=== PATIENT | female | born 1950 | race African-American/Black ===

== ENCOUNTER 2016-06-13 09:11 | Emergency (ER) | payer MEDICAID ==
[~2016-06-13] VITALS: Ht 170.2 cm; Wt 65.8 kg
[~2016-06-13 09:11] MED LIST: ACETAMINOPHEN-1 EAC1 ORAL; CITALOPRAM HBR10 M1 ORAL; HYDROCHLOROTH12.5 M2 ORAL; IBUPROFEN600 M1 PO; IBUPROFEN600 MG ORAL; IBUPROFEN600 MG PO; IBUPROFEN800 M1 PO; K-DUR20 MEQ ORAL; MICARDIS20 MG ORAL; NIFEDICAL XL30 MG ORAL; NKM; NORCO 5-325 TA1 EACH ORAL; NORCO 5-325 TA1 EACH PO; POTASSIUM99 M2 PO; ROBAXIN-750750 MG PO; TRAMADOL HCL50 MG ORAL; UNK CHOLESTEROL MED; VALIUM5 MG ORAL
[2016-06-13 11:00] VITALS: BP 148/70
[2016-06-13] MEDS ORDERED: ACETAMINOPHEN-1 EAC1 ORAL (12:12)
[2016-06-13] MEDS ORDERED: ROBAXIN-750750 MG PO (12:12)
[2016-06-13] MEDS ORDERED: Ketorolac 60mg Inj IM ONE (12:15)
--- NOTE | 2016-06-13 12:30 | Emergency Room Report ---
History of Present Illness General Chief Complaint: Lower Back Pain or Injury Source: Patient Present Illness HPI 65 YOM came for chronic left low back pain. States fell on left lower back 3 weeks ago but "that pain resolved." States "cant see my doctor til next month. " States doesnt have any medication at home. Pain worse with movement, walking. Denies assoc lower extremity weakness, urinary/fecal incontinence, fever/chills , dysuria, history of IVDU or malignancy. Allergies: Coded Allergies: No Known Allergies (Unverified , 10/23/15) Patient History Past Medical History: none Past Surgical History: none Pertinent Family History: none Social History: Denies: alcohol use, drug use, smoking Last Menstrual Period: na Now: No Immunizations: UTD Reviewed Nursing Documentation: PMH: Agreed, PSxH: Agreed Nursing Documentation-PMH Past Medical History: No History, Except For Hx Hypertension: Yes Hx Pacemaker: No Hx Asthma: No - Bronchitis Hx COPD: No Hx Cancer: Yes - Breast cancer Review of Systems All Other Systems: negative except mentioned in HPI Physical Exam Vital Signs Date Time Temp Pulse Resp B/P Pulse Ox O2 Delivery O2 Flow Rate FiO2 06/13/16 09:44 98.2 66 18 148/70 100 Room Air Sp02 EP Interpretation: reviewed, normal General Appearance: normal inspection, well appearing, no apparent distress, alert, GCS 15, non-toxic Head: normocephalic, atraumatic Eyes: bilateral eye EOMI, bilateral eye PERRL ENT: normal ENT inspection, hearing grossly normal, normal voice Neck: normal inspection, full range of motion, supple, no bony tend Respiratory: normal inspection, lungs clear, normal breath sounds, no respiratory distress, no retraction, no wheezing Cardiovascular #1: regular rate, rhythm, no edema Gastrointestinal: normal inspection, normal bowel sounds, non tender, soft, no guarding, no hernia Genitourinary: no CVA tenderness Musculoskeletal: normal inspection, back normal, normal range of motion, Dallas' s Sign negative, other - Mild left paravertebral ttp. 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 nml as tested, motor strength/tone normal, speech normal Psychiatric: normal inspection, judgement/insight normal, mood/affect normal Skin: normal inspection, normal color, no rash Medical Decision Making Diagnostic Impression: Primary Impression: Low back pain Qualified Codes: M54.5 - Low back pain; G89.29 - Other chronic pain ER Course A: low suspicion for cord compression given well appearance, paravertebral ttp, no focal neuro deficits, absence of midline ttp/masses and pain worse with movement with known exacerbating activity Multiple visits here for same complaint with similar story of "doctor out of town." Per CURES, multiple narcotic Rx given in the past I am uncomfortable providing additional Rx Narcotics at this time Rx T#3 with robaxin DC home with PMD followup Last Vital Signs Date Time Temp Pulse Resp B/P Pulse Ox O2 Delivery O2 Flow Rate FiO2 06/13/16 09:44 98.2 66 18 148/70 100 Room Air Status: improved Disposition: HOME, SELF-CARE Condition: Improved Scripts Methocarbamol* (ROBAXIN-750*) 750 Mg Tablet 750 MG PO TID, #30 TAB 0 Refills Prov: NEREIDA COELHO M.D. 06/13/16 Acetaminophen With Codeine (T#3) (TYLENOL #3 TAB*) Y Tab 1 TAB ORAL Q8H Y for For Pain, #30 TAB Prov: NEREIDA COELHO M.D. 06/13/16 Referrals: NON PHYSICIAN (PCP) Patient Instructions: Back Pain, Adult NEREIDA COELHO M.D. Jun 13, 2016 12:30
[2016-06-13 12:42] VITALS: BP 132/71
== END 2016-06-13 12:44 | disposition home or self-care (01) ==
LOC: EMR 10:40
DX: M54.5 Low back pain (principal); G89.29 Other chronic pain; I10 Essential (primary) hypertension; Z85.3 Personal history of malignant neoplasm of breast
CPT/HCPCS: 96372; 99284

== ENCOUNTER 2016-09-19 12:16 | Emergency (ER) | payer MEDICAID ==
[~2016-09-19] VITALS: Ht 167.6 cm; Wt 61.7 kg
[2016-09-19 12:31] VITALS: BP 134/74
[2016-09-19] MEDS ORDERED: Norco 10mg/325mg tab ORAL ONE (13:00)
[2016-09-19 13:04] VITALS: BP 134/74
--- NOTE | 2016-09-19 22:08 | Emergency Room Report ---
History of Present Illness General Chief Complaint: Pain Source: Patient Present Illness HPI The patient is a 65-year-old female with a history of chronic pain presenting for abdominal pain. The patient states that she had abdominal surgery years prior for an unknown reason and is now experiencing a 9/10 dull ache. Pain radiates to the left breast it is worse with touch. She has tried Motrin and Tylenol at home which has not helped. She denies other symptoms including nausea, vomiting, fever, chills, rash, constipation, diarrhea. She states that her primary doctor is out of town and she is unable to see him for pain medication Allergies: Coded Allergies: No Known Allergies (Unverified , 10/23/15) Patient History Past Medical History: see triage record Pertinent Family History: none Now: No Reviewed Nursing Documentation: PMH: Agreed, PSxH: Agreed Nursing Documentation-PMH Hx Hypertension: Yes Hx Pacemaker: No Hx Asthma: No - Bronchitis Hx COPD: No Hx Cancer: Yes - Breast cancer Review of Systems All Other Systems: negative except mentioned in HPI Physical Exam Vital Signs Date Time Temp Pulse Resp B/P Pulse Ox O2 Delivery O2 Flow Rate FiO2 09/19/16 12:22 98.2 56 17 134/74 97 Room Air Sp02 EP Interpretation: reviewed, normal General Appearance: no apparent distress, alert, GCS 15, non-toxic Head: normocephalic, atraumatic Eyes: bilateral eye PERRL, bilateral eye normal inspection ENT: hearing grossly normal, normal pharynx, no angioedema, normal voice Neck: full range of motion, supple/symm/no masses Respiratory: chest non-tender, lungs clear, normal breath sounds, speaking full sentences Gastrointestinal: normal bowel sounds, soft, no mass, non-distended, no guarding, no rebound, tenderness - diffuse, other - horizontal surigcal scar suprapubic. Well healed. No bleeding or DC. Neurologic: alert, oriented x3, responsive, motor strength/tone normal, sensory intact, normal gait, speech normal Psychiatric: judgement/insight normal, memory normal, mood/affect normal, no suicidal/homicidal ideation Skin: normal color, no rash, warm/dry, well hydrated Lymphatic: no adenopathy Medical Decision Making PA Attestation Dr. Guallpa is my supervising physician. Patient management was discussed with my supervising physician Diagnostic Impression: Primary Impression: Chronic pain Qualified Codes: G89.29 - Other chronic pain ER Course The patient is a 65-year-old female with a history of chronic pain presenting for abdominal pain Differential diagnoses considered include but not limited to gastritis, pancreatitis, appendicitis, chronic pain, narcotic dependency PE: NAD Abdomen is soft. Normal bowel sounds. Nondistended. There is diffuse tenderness to palpation. No guarding. There is a horizontal suprapubic surgical scar that is well-healed. No discharge. No skin changes. CURES shows that the patient has had multiple recent narcotic prescriptions from different physicians. The patient is given one [place] in the emergency department and will be discharged home. She is informed that she needs to see pain management and primary doctor for further care. ER precautions given Last Vital Signs Date Time Temp Pulse Resp B/P Pulse Ox O2 Delivery O2 Flow Rate FiO2 09/19/16 13:04 98.2 09/19/16 13:04 17 134/74 97 Room Air 09/19/16 12:22 56 Status: improved Disposition: HOME, SELF-CARE Condition: Improved Referrals: [facility],REFERR[facility] (PCP) Patient Instructions: Chronic Pain Additional Instructions: I discussed my findings with the patient. All questions and concerns have been answered. Treatment and medication compliance have been addressed. I advised the patient that they need to follow up with PMD in 3-5 days. Return to ED if symptoms worsen, new symptoms arise, or if needed for any reason. Patient verbalized understanding of discharge instructions. Please followup with pain management for further care MILAGROS DACOSTA Sep 19, 2016 22:08
== END 2016-09-19 13:04 | disposition home or self-care (01) ==
LOC: EMR 12:46
DX: G89.29 Other chronic pain (principal); Z85.3 Personal history of malignant neoplasm of breast; I10 Essential (primary) hypertension
CPT/HCPCS: 99282

== ENCOUNTER 2016-12-02 10:34 | Emergency (ER) | payer MEDICAID ==
[~2016-12-02] VITALS: Ht 170.2 cm; Wt 63.5 kg
[2016-12-02 10:50] VITALS: BP 148/74
--- NOTE | 2016-12-02 11:41 | Emergency Room Report ---
History of Present Illness General Chief Complaint: Edema Source: Patient Present Illness HPI 65YOF walk-in with bilateral "feet swelling" for 1 week. Denies chest pain, SOB, history of CHF On "many medications" for HTN but stopped taking HCTZ because it "made me pee all night." Denies history of pulm edema Denies fever/chills Denies trauma to feet, falls Denies rash Allergies: Coded Allergies: HYDROMORPHONE (Verified Allergy, Unknown, 09/20/16) Patient History Past Medical History: HTN Past Surgical History: none Pertinent Family History: none Social History: Denies: smoking, alcohol use, drug use Now: No Immunizations: UTD Reviewed Nursing Documentation: PMH: Agreed, PSxH: Agreed Nursing Documentation-PMH Hx Hypertension: Yes Hx Pacemaker: No Hx Asthma: No - Bronchitis Hx COPD: No Hx Cancer: Yes - Breast cancer Review of Systems All Other Systems: negative except mentioned in HPI Physical Exam Vital Signs Date Time Temp Pulse Resp B/P (MAP) Pulse Ox O2 Delivery O2 Flow Rate FiO2 12/02/16 10:40 98.4 74 17 132/76 97 Room Air Sp02 EP Interpretation: reviewed, normal General Appearance: normal inspection, well appearing, no apparent distress, alert, GCS 15, non-toxic Head: normocephalic, atraumatic Eyes: bilateral eye PERRL, bilateral eye EOMI ENT: normal ENT inspection, hearing grossly normal, normal voice Neck: normal inspection, full range of motion, supple, no bony tend Respiratory: normal inspection, lungs clear, normal breath sounds, no respiratory distress, no retraction, no wheezing Cardiovascular #1: regular rate, rhythm, no edema Gastrointestinal: normal inspection, normal bowel sounds, non tender, soft, no guarding, no hernia Genitourinary: no CVA tenderness Musculoskeletal: normal inspection, back normal, normal range of motion, Dallas' s Sign negative, other - Bilateral feet non-pitting edema. No rash or sign of infection. 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 Troponin 0 VSS. BP controlled. Mild HypoK, was repleted in ED Low albumin UTI on UA. Rx macrobid Advised PMD followup to monitor hypoK as possible side effect of diuretic for HTN Advised KARMA wrap, elevation of feet at night Has PMD appt coming up soon EKG Diagnostic Results Rate: normal Rhythm: NSR ST Segments: no acute changes ASA given to the pt in ED: No Rhythm Strip Diag. Results EP Interpretation: yes - 71 Rate: 71 Rhythm: NSR, other - PACs, incomplete RBBB Last Vital Signs Date Time Temp Pulse Resp B/P (MAP) Pulse Ox O2 Delivery O2 Flow Rate FiO2 12/02/16 10:40 98.4 74 17 132/76 97 Room Air Status: improved Disposition: HOME, SELF-CARE NEREIDA COELHO M.D. Dec 02, 2016 11:41
--- NOTE | 2016-12-02 11:57 | Diagnostic Imaging Report ---
Indication: Dyspnea Comparison: 08/05/16 A single view chest radiograph was obtained. Findings: Surgical clips noted in the left axilla and projected over left chest. Heart size is borderline enlarged. Bones are osteopenic. Lungs are clear. Impression: No acute findings
[2016-12-02 12:37] LABS: APPEARANCE,URINE CLEAR; KETONES,URINE NEGATIVE (NEGATIVE); LEUKOCYTE ESTERASE ,URINE 2+ (NEGATIVE); NITRITE,URINE NEGATIVE (NEGATIVE); PH,URINE 8 (4.5-8.0); PROTEIN,URINE NEGATIVE (NEGATIVE); UROBILINOGEN,URINE NORMAL MG/DL (0.0-1.0)
[2016-12-02 12:44] LABS: BASOPHILS % (AUTO) 0.7 % (0.0-2.0); EOSINOPHILS % (AUTO) 1.6 % (0.0-3.0); MEAN CORPUSCULAR HEMOGLOBIN 28.8 PG (27.0-31.0); MEAN CORPUSCULAR HGB CONC 31.1 G/DL (32.0-36.0); MEAN CORPUSCULAR VOLUME 93 FL (80-99); MONOCYTES % (AUTO) 8.6 % (1.0-10.0); NEUTROPHILS % (AUTO) 70.1 % (45.0-75.0); PLATELET COUNT 232 K/UL (150-450); RED BLOOD COUNT 4.17 M/UL (4.20-5.40); RED CELL DISTRIBUTION WIDTH 15.6 % (11.6-14.8); WHITE BLOOD COUNT 6.1 K/UL (4.8-10.8)
[2016-12-02 12:49] LABS: BACTERIA,URINE FEW /HPF; SQUAMOUS EPITHELIAL CELL,UR FEW /LPF (NONE/OCC)
[2016-12-02 13:04] LABS: ALANINE AMINOTRANSFERASE 13 U/L (3-33); ALBUMIN/GLOBULIN RATIO 0.8 (1.0-2.7); ANION GAP 13 (5-15); ASPARTATE AMINO TRANSFERASE 37 U/L (5-40); CARBON DIOXIDE 27 mEQ/L (20-30); CHLORIDE 101 mEQ/L (98-107); CREATININE 0.8 mg/dL (0.5-0.9); GLOMERULAR FILTRATION RATE > 60 mL/min (>60); HEMOLYSIS 14; POTASSIUM 2.9 mEQ/L (3.4-4.9); SODIUM 141 mEQ/L (135-145); TOTAL PROTEIN 7.4 g/dL (6.6-8.7); TROPONIN I < 0.30 ng/mL (<=0.30)
[2016-12-02 13:14] LABS: CKMB 2.4 ng/mL (< 3.8)
[2016-12-02] MEDS ORDERED: NITROFURANTOIN100 M2 ORAL (13:36)
[2016-12-02] MEDS ORDERED: ACETAMINOPHEN-1 EAC1 ORAL (13:40)
[2016-12-02] MEDS ORDERED: KCl 10% 40mEq/30ml liquid ORAL ONE (13:45)
[2016-12-02 14:35] VITALS: BP 134/58
--- NOTE | 2016-12-04 19:45 | Cardiology Report ---
APPROVED REPORT EKG Measurement Heart [id number] Sinus rhythm with premature atrial complexes Low voltage QRS Incomplete right bundle branch block Left anterior fascicular block Cannot rule out Anterior infarct, age undetermined Abnormal ECG
== END 2016-12-02 14:35 | disposition home or self-care (01) ==
LOC: EMR 11:16
DX: R60.0 Localized edema (principal); E87.6 Hypokalemia; N39.0 Urinary tract infection, site not specified; Z85.3 Personal history of malignant neoplasm of breast; I10 Essential (primary) hypertension
CPT/HCPCS: 36415; 71010; 80053; 81003; 82550; 82553; 83880; 84484; 85025; 93005; 99283

== ENCOUNTER 2016-12-17 16:44 | Inpatient (IN) | payer MEDICARE, MEDICAID ==
[~2016-12-17] VITALS: Ht 170.2 cm; Wt 63.5 kg
[~2016-12-17 16:44] MED LIST changes: +NITROFURANTOIN100 M2 ORAL
[2016-12-17 16:57] VITALS: BP 173/107
[2016-12-17] MEDS ORDERED: Metoclopramide 10mg/2ml Inj IVP ONE (17:15)
--- NOTE | 2016-12-17 17:20 | Emergency Room Report ---
History of Present Illness General Chief Complaint: Vomiting Source: Patient Present Illness HPI 66YOF walk-in with 24 hours of greenish vomit, diarrhea and generalized abd pain after eating burrito at home Son also sick, had burrito Cant tolerate any PO intake Denies urinary complaints, fever/chills, past surgery No new meds or ABx no travel history Allergies: Coded Allergies: HYDROMORPHONE (Verified Allergy, Unknown, 09/20/16) Patient History Past Medical History: HTN Past Surgical History: none Pertinent Family History: none Social History: Denies: smoking, alcohol use, drug use Last Menstrual Period: none Now: No Immunizations: UTD Reviewed Nursing Documentation: PMH: Agreed, PSxH: Agreed Nursing Documentation-PMH Hx Hypertension: Yes Hx Pacemaker: No Hx Asthma: No - Bronchitis Hx COPD: No Hx Cancer: Yes - Breast cancer Review of Systems All Other Systems: negative except mentioned in HPI Physical Exam Vital Signs Date Time Temp Pulse Resp B/P (MAP) Pulse Ox O2 Delivery O2 Flow Rate FiO2 12/17/16 16:51 97.7 84 23 173/107 100 Room Air Sp02 EP Interpretation: reviewed, normal General Appearance: normal inspection, well appearing, no apparent distress, alert, GCS 15, non-toxic, other - Actively with green vomitous Head: normocephalic, atraumatic Eyes: bilateral eye PERRL, bilateral eye EOMI ENT: normal ENT inspection, hearing grossly normal, normal voice Neck: normal inspection, full range of motion, supple, no bony tend Respiratory: normal inspection, lungs clear, normal breath sounds, no respiratory distress, no retraction, no wheezing Cardiovascular #1: regular rate, rhythm, no edema Gastrointestinal: normal inspection, normal bowel sounds, non tender, soft, no guarding, no hernia Genitourinary: no CVA tenderness Musculoskeletal: normal inspection, back normal, normal range of motion, Dallas' s Sign negative Neurologic: normal inspection, alert, responsive, speech normal Psychiatric: normal inspection, judgement/insight normal, mood/affect normal Skin: normal inspection, normal color, no rash Medical Decision Making Medicare Attestation I Nereida Coelho MD hereby attest that the medical record entry for date of service, 12/17/16 accurately reflects signatures/notations that I made in my capacity as MD when I treated/diagnosed the above listed Medicare beneficiary. I attest that this information is true, accurate and complete to the best of my knowledge. I understand that any falsification, omission, or concealment of material fact may subject me to administrative, civil, or criminal liability. This patient warrants hospital admission for extreme of age and has a condition that cannot be treated as outpatient. Diagnostic Impression: Primary Impression: Vomiting Qualified Codes: R11.14 - Bilious vomiting Additional Impressions: Diarrhea Qualified Codes: R19.7 - Diarrhea, unspecified Gastroenteritis Hypokalemia ER Course Troponin 0 Labs: No leuks. H&h stable HypoK - has had before. On diuretic for BP control - Mild JAMAAL - ECG: previously seen incomplete RBBB and LAFB - Repleted PO and IV in ED Elevated lipase - Likely reactionary from vomiting - CT negative for acute pancreatitis, other pathology - Only colitis Tele admit, Dr Galdamez at 726pm EKG Diagnostic Results Rate: normal Rhythm: NSR, other - LAFB, RBBB ST Segments: no acute changes ASA given to the pt in ED: No Rhythm Strip Diag. Results EP Interpretation: yes Rate: 82 Rhythm: NSR, no PVC's, no ectopy Last Vital Signs Date Time Temp Pulse Resp B/P (MAP) Pulse Ox O2 Delivery O2 Flow Rate FiO2 12/17/16 16:51 97.7 84 23 173/107 100 Room Air Status: improved Disposition: ADMITTED INPATIENT Condition: Serious NEREIDA COELHO M.D. Dec 17, 2016 17:20
[2016-12-17 17:52] LABS: BASOPHILS % (AUTO) 1.3 % (0.0-2.0); EOSINOPHILS % (AUTO) 0.2 % (0.0-3.0); LYMPHOCYTES % (AUTO) 17.3 % (20.0-45.0); MEAN CORPUSCULAR HEMOGLOBIN 30.9 PG (27.0-31.0); MEAN CORPUSCULAR HGB CONC 32.6 G/DL (32.0-36.0); MEAN CORPUSCULAR VOLUME 95 FL (80-99); MEAN PLATELET VOLUME 6.5 FL (6.5-10.1); MONOCYTES % (AUTO) 5.6 % (1.0-10.0); NEUTROPHILS % (AUTO) 75.6 % (45.0-75.0); PLATELET COUNT 236 K/UL (150-450); RED BLOOD COUNT 4.57 M/UL (4.20-5.40); RED CELL DISTRIBUTION WIDTH 16.4 % (11.6-14.8); WHITE BLOOD COUNT 9.3 K/UL (4.8-10.8)
[2016-12-17] MEDS ORDERED: Famotidine 20 MG/ 2ML VIAL IVP ONE (18:00)
[2016-12-17] MEDS ORDERED: Morphine Sulfate 4mg/ml Inj IVP ONE (18:00)
[2016-12-17 18:07] LABS: ALANINE AMINOTRANSFERASE 17 U/L (3-33); ALBUMIN/GLOBULIN RATIO 0.9 (1.0-2.7); ASPARTATE AMINO TRANSFERASE 52 U/L (5-40); CALCIUM 9.5 mg/dL (8.6-10.2); CARBON DIOXIDE 24 mEQ/L (20-30); CHLORIDE 103 mEQ/L (98-107); GLOMERULAR FILTRATION RATE > 60 mL/min (>60); HEMOLYSIS 12; LIPASE 72 U/L (< 60); SODIUM 145 mEQ/L (135-145)
[2016-12-17 18:12] LABS: ANION GAP 18 (5-15)
[2016-12-17 18:16] LABS: POTASSIUM 2.1 mEQ/L (3.4-4.9)
[2016-12-17] MEDS ORDERED: LR 1000ml 1,000 ML IV STA (18:28)
[2016-12-17 19:53] VITALS: BP 159/69
[2016-12-17 20:04] LABS: APPEARANCE,URINE CLEAR; KETONES,URINE NEGATIVE (NEGATIVE); LEUKOCYTE ESTERASE ,URINE 1+ (NEGATIVE); NITRITE,URINE NEGATIVE (NEGATIVE); PH,URINE 8 (4.5-8.0); PROTEIN,URINE NEGATIVE (NEGATIVE); UROBILINOGEN,URINE NORMAL MG/DL (0.0-1.0)
[2016-12-17 20:09] LABS: BACTERIA,URINE OCCASIONAL /HPF; RBC,URINE 0-2 /HPF (0 - 2); SQUAMOUS EPITHELIAL CELL,UR OCCASIONAL /LPF (NONE/OCC); WBC,URINE 0-2 /HPF (0 - 2)
[2016-12-17] MEDS ORDERED: Methocarbamol 750mg tab ORAL PRN (20:15)
[2016-12-17 21:23] VITALS: BP 143/57
[2016-12-17] MEDS ORDERED: metroNIDAZOLE 500mg 100 ML IVPB PRN (22:00)
[2016-12-17] MEDS: D5 1/2NS w/KCl 20mEq 1,000 ML IV SCH (22:43)
[2016-12-17] MEDS: traMADol 50mg tab ORAL PRN (23:00)
[2016-12-17] MEDS: metroNIDAZOLE 500mg tab ORAL SCH (23:00)
[2016-12-17] MEDS: Heparin 5000 units/ml inj SUBQ SCH (23:03)
[2016-12-18 00:14] VITALS: BP 137/68
[2016-12-18 04:38] VITALS: BP 131/69
[2016-12-18] MEDS: metroNIDAZOLE 500mg tab ORAL SCH ×3 (05:30→20:36)
[2016-12-18 08:00] VITALS: BP 139/80
[2016-12-18] MEDS: Citalopram Hydrobromide 10 MG TAB ORAL SCH (09:04)
[2016-12-18] MEDS: traMADol 50mg tab ORAL PRN (09:04)
[2016-12-18] MEDS: D5 1/2NS w/KCl 20mEq 1,000 ML IV SCH ×2 (09:05→19:26)
--- NOTE | 2016-12-18 09:08 | Diagnostic Imaging Report ---
Clinical Indication: Abdominal pain, vomiting, 24 hours of greenish vomiting, diarrhea, generalized abdominal pain, unable to tolerate p.o. intake Technique: No oral contrast utilized, per emergency room physician request IV administration nonionic contrast. Venous phase spiral acquisition obtained through the abdomen and pelvis. Multiplanar reconstructions were generated. Total dose length product 909 mGycm. CTDIvol(s) 16 mGy. Dose reduction achieved using automated exposure control Comparison: 04/11/2015 Findings: Interim development of diffuse wall thickening of the colon. This is particularly striking in the ascending and sigmoid colon, but appears to be diffuse. The appendix is normal. Some small bowel loops also demonstrate very mild wall thickening and mural enhancement. The distal esophagus demonstrates a hiatal hernia. The remainder the stomach and duodenum are unremarkable. No free or loculated intraperitoneal air or fluid. There is evidence of interim abdominal surgery, with surgical clips or mesh anchors in the anterior right lower quadrant and evidence of subcutaneous surgical scarring, not evident previously. There are scattered colonic diverticula. No small bowel distention. The liver equivocally demonstrates mild surface nodularity. In segment 8 of the liver, there is a low-attenuation lesion with an enhancing rim which measures approximately 2.8 x 2.4 cm in diameter. This was not evident previously. A nodule is seen anterior to the left hepatic lobe which measures 11 mm in diameter. This was also evident previously, appears unchanged currently. The gallbladder is nondistended. Bile ducts are unremarkable. The pancreas is unremarkable. The spleen demonstrates 2 accessory splenules, is otherwise unremarkable. The adrenals are unremarkable. The kidneys demonstrate bilateral subcentimeter low-attenuation lesions which are too small to characterize, most likely benign simple cortical cysts. The uterus demonstrates multiple masses, consistent with fibroids. Again demonstrated is a 3.2 cm right ovarian cyst. The included lung bases again demonstrate minimal scarring in the left costophrenic sulcus which appears unchanged. The heart is borderline enlarged. There a fluid collection in the anterolateral lower chest wall deep to the inframammary fold which measures approximately 7 x 2.6 x 3.9 cm. This was not evident previously. There appears to be some scarring superficial to this as well as one or more surgical clips. The bones are unremarkable except for mild degenerative spondylosis changes and degenerative changes of both hips. Impression: Diffuse colonic wall thickening. Findings consistent with colitis. Nonspecific as regards etiology. Less striking small bowel wall thickening and mural enhancement may indicate a component of enteritis as well 2.8 x 2.4 cm low-attenuation lesion within the right lobe of the liver. This could represent a an abscess or neoplasm, appearance more suggestive of the former Equivocal mild hepatic surface nodularity. Possibility of cirrhosis should be considered. Correlate with clinical and laboratory findings Evidence of interim left breast surgery. 7 x 2.6 x 3.9 cm fluid collection deep to the left inframammary fold could represent a postoperative seroma. However, abscess cannot be ruled out Evidence of interim abdominal surgery, possibly abdominal wall hernia repair or abdominoplasty 11 mm nodule anterior left hepatic lobe, unchanged from previous presumed benign 3.2 cm right ovarian cyst, unchanged from previously and previously reported stable from earlier studies Single findings as noted, including hiatal hernia, probable renal cysts, multiple uterine fibroids, left lung base scarring, borderline cardiomegaly, degenerative spondylosis and degenerative hip changes This agrees with the preliminary interpretation provided overnight by [facility] teleradiology service. The CT scanner at -- [facility] is accredited by the [employer] and the scans are performed using protocols designed to limit radiation exposure to as low as reasonably achievable to attain images of sufficient resolution adequate for diagnostic evaluation.
[2016-12-18] MEDS: Heparin 5000 units/ml inj SUBQ SCH ×2 (09:13→20:39)
[2016-12-18 10:14] LABS: BASOPHILS % (AUTO) 1.1 % (0.0-2.0); EOSINOPHILS % (AUTO) 0.8 % (0.0-3.0); LYMPHOCYTES % (AUTO) 17.9 % (20.0-45.0); MEAN CORPUSCULAR HEMOGLOBIN 30.9 PG (27.0-31.0); MEAN CORPUSCULAR HGB CONC 31.8 G/DL (32.0-36.0); MEAN CORPUSCULAR VOLUME 97 FL (80-99); MEAN PLATELET VOLUME 6.9 FL (6.5-10.1); MONOCYTES % (AUTO) 9.5 % (1.0-10.0); NEUTROPHILS % (AUTO) 70.6 % (45.0-75.0); PLATELET COUNT 198 K/UL (150-450); RED BLOOD COUNT 3.67 M/UL (4.20-5.40); RED CELL DISTRIBUTION WIDTH 16.2 % (11.6-14.8); WHITE BLOOD COUNT 7.1 K/UL (4.8-10.8)
[2016-12-18 10:52] LABS: ALANINE AMINOTRANSFERASE 16 U/L (3-33); ALBUMIN/GLOBULIN RATIO 1.1 (1.0-2.7); ANION GAP 14 (5-15); ASPARTATE AMINO TRANSFERASE 55 U/L (5-40); CARBON DIOXIDE 21 mEQ/L (20-30); CHLORIDE 104 mEQ/L (98-107); CREATININE 0.8 mg/dL (0.5-0.9); GLOMERULAR FILTRATION RATE > 60 mL/min (>60); HEMOLYSIS 9; POTASSIUM 3.3 mEQ/L (3.4-4.9); SODIUM 139 mEQ/L (135-145)
[2016-12-18 12:00] VITALS: BP 138/62
[2016-12-18] MEDS: Norco 10mg/325mg tab ORAL PRN ×3 (12:09→19:27)
--- NOTE | 2016-12-18 18:35 | Cardiology Report ---
APPROVED REPORT EKG Measurement Heart [id number] Sinus rhythm with frequent premature ventricular complexes Left axis deviation Incomplete right bundle branch block Possible Anterior infarct, age undetermined Abnormal ECG
[2016-12-18 20:15] VITALS: BP 152/69
--- NOTE | 2016-12-18 20:30 | History and Physical Report ---
DATE OF ADMISSION: 12/17/2016 CHIEF COMPLAINT: Intractable nausea and vomiting, abdominal pain, and diarrhea. HISTORY OF PRESENT ILLNESS: The patient is a 66-year-old female, who has a prior history of hypertension, breast cancer, and chronic lower back pain. She presented with complaints of intractable nausea and vomiting and diarrhea. According to the patient, she was well until worm raiser of the day of admission when she woke with severe nausea and vomiting as well as diarrhea. She states her son had similar symptoms, but they resolved spontaneously after a few hours. She presented to the emergency room where she was noted to be severely hypokalemic. She had a CAT scan that showed colitis. In light of her intractable nausea and vomiting, inability to tolerate p.o., as well as hypokalemia, she is now admitted for further evaluation and care. PAST MEDICAL HISTORY: Significant for history of hypertension. She has a history of breast cancer, breast abscess, status post mastectomy. CURRENT MEDICATIONS: Reconciled and reviewed. ALLERGIES: Include Dilaudid. SOCIAL HISTORY: Negative for tobacco, ethanol, or drugs. FAMILY HISTORY: Significant for history of cirrhosis, hypertension, and diabetes. REVIEW OF SYSTEMS: General: No fevers or chills. HEENT: No headaches or visual changes. Cardiopulmonary: No chest pain or shortness of breath. Gastrointestinal: Positive nausea and vomiting. Positive diarrhea. Genitourinary: No urgency or frequency. Musculoskeletal: No joint pains or swelling. Positive history of chronic low back pain. Neurologic: No history of seizures. PHYSICAL EXAMINATION: VITAL SIGNS: Temperature 98 degrees, blood pressure 137/68, pulse 64, and respirations 20. GENERAL: The patient is a well developed female, in no apparent distress. She is awake, alert, and oriented x4. NECK: Supple. There is no jugular venous distention. HEART: Regular rate and rhythm. LUNGS: Clear. ABDOMEN: Soft. Minimally tender throughout. There is no rebound or guarding. EXTREMITIES: Without clubbing, cyanosis, or edema. LABORATORY AND DIAGNOSTIC DATA: Labs, white count was 9, hemoglobin 14. Sodium 145, potassium 2, creatinine was 1. Magnesium was 1.6. Urine was clear. CT scan of the abdomen per report from the ER showed colitis. ASSESSMENT: This is a pleasant female with complaints of intractable nausea and vomiting and diarrhea, suspect secondary to food poisoning or gastroenteritis. She has severe hypokalemia due to the above. In addition, she does take need a diuretic. She has chronic lower back pain, history of breast cancer, and breast abscess. PLAN: Aggressive fluid resuscitation. Antiemetic therapy. Follow up cultures. Check stool for C. difficile. Replace electrolytes as needed. Discontinue diuretic. Cardiology and GI consultation. Johnie Galdamez M.D. DR: COOKIE JOB#: [id number] CC:
[2016-12-19 00:03] VITALS: BP 129/64
[2016-12-19] MEDS: Norco 10mg/325mg tab ORAL PRN ×5 (02:14→20:24)
[2016-12-19] MEDS: D5 1/2NS w/KCl 20mEq 1,000 ML IV SCH ×3 (03:46→20:27)
[2016-12-19 04:14] VITALS: BP 135/66
[2016-12-19] MEDS: metroNIDAZOLE 500mg tab ORAL SCH ×3 (05:02→21:21)
[2016-12-19 08:37] VITALS: BP 171/74
--- NOTE | 2016-12-19 08:44 | General Progress Note ---
Assessment/Plan Problem List: (1) Diarrhea ICD Codes: R19.7 - Diarrhea, unspecified SNOMED: 51005536 Qualifiers: Qualified Codes: R19.7 - Diarrhea, unspecified (2) Vomiting ICD Codes: R11.10 - Vomiting, unspecified SNOMED: 586834790 Qualifiers: Qualified Codes: R11.14 - Bilious vomiting (3) Hypokalemia ICD Codes: E87.6 - Hypokalemia SNOMED: 63356265 (4) Gastroenteritis ICD Codes: K52.9 - Noninfective gastroenteritis and colitis, unspecified SNOMED: 05400647 (5) Chronic pain ICD Codes: G89.29 - Other chronic pain SNOMED: 11020498 Assessment/Plan cont ivf check stool cdiff and cultures abx follow up labs check tfts- +bradycardia pain rx Subjective ROS Limited/Unobtainable: No Constitutional: Reports: malaise, weakness HEENT: Reports: no symptoms Cardiovascular: Reports: no symptoms Respiratory: Reports: no symptoms Gastrointestinal/Abdominal: Reports: abdominal pain, diarrhea Genitourinary: Reports: no symptoms Neurologic/Psychiatric: Reports: no symptoms Endocrine: Reports: no symptoms Hematologic/Lymphatic: Reports: no symptoms Allergies: Coded Allergies: HYDROMORPHONE (Verified Allergy, Unknown, 09/20/16) All Systems: reviewed and negative except above Subjective no vomiting. still with nausea. still having diarrhea. +bradycardia Objective Last 24 Hour Vital Signs Date Time Temp Pulse Resp B/P (MAP) Pulse Ox O2 Delivery O2 Flow Rate FiO2 12/19/16 08:37 97.9 54 18 171/74 100 Room Air 12/19/16 04:14 97.7 47 20 135/66 99 Room Air 12/19/16 04:00 62 12/19/16 03:17 97.9 12/19/16 00:03 97.9 56 20 129/64 99 Room Air 12/19/16 00:00 54 12/18/16 20:15 97.7 55 20 152/69 100 Room Air 55 55 12/18/16 20:00 72 12/18/16 16:00 98.1 55 18 100 Room Air 12/18/16 16:00 55 12/18/16 12:00 97.5 57 20 138/62 100 Room Air 12/18/16 12:00 49 12/18/16 09:05 60 131/69 Laboratory Tests 12/18/16 09:15: White Blood Count 7.1, Red Blood Count 3.67L, Hemoglobin 11.3L, Hematocrit 35.7L , Mean Corpuscular Volume 97, Mean Corpuscular Hemoglobin 30.9, Mean Corpuscular Hemoglobin Concent 31.8L, Red Cell Distribution Width 16.2H, Platelet Count 198, Mean Platelet Volume 6.9, Neutrophils (%) (Auto) 70.6, Lymphocytes (%) (Auto) 17.9L, Monocytes (%) (Auto) 9.5, Eosinophils (%) (Auto) 0.8, Basophils (%) (Auto) 1.1, Sodium Level 139, Potassium Level 3.3#L, Chloride Level 104, Carbon Dioxide Level 21, Anion Gap 14, Blood Urea Nitrogen 7 , Creatinine 0.8, Estimat Glomerular Filtration Rate > 60, Glucose Level 324#H, Calcium Level 8.0L, Total Bilirubin 0.9, Aspartate Amino Transf (AST/SGOT) 55H, Alanine Aminotransferase (ALT/SGPT) 16, Alkaline Phosphatase 68, Total Protein 6.0L, Albumin 3.2L, Globulin 2.8, Albumin/Globulin Ratio 1.1 12/19/16 06:50: Sodium Level [Pending], Potassium Level [Pending], Chloride Level [Pending], Carbon Dioxide Level [Pending], Blood Urea Nitrogen [Pending], Creatinine [ Pending], Estimat Glomerular Filtration Rate [Pending], Glucose Level [Pending] , Calcium Level [Pending], Total Bilirubin [Pending], Aspartate Amino Transf ( AST/SGOT) [Pending], Alanine Aminotransferase (ALT/SGPT) [Pending], Alkaline Phosphatase [Pending], Total Protein [Pending], Albumin [Pending], Globulin [ Pending], Hemoglobin A1c 4.7 Height (Feet): 5 Height (Inches): 7.00 Weight (Pounds): 140 General Appearance: WD/WN Neck: supple Cardiovascular: regular rhythm Respiratory/Chest: chest wall non-tender, lungs clear, normal breath sounds, no respiratory distress Abdomen: normal bowel sounds, non tender, soft Edema: no edema noted Arm (L), no edema noted Arm (R), no edema noted Leg (L), no edema noted Leg (R), no edema noted Pedal (L), no edema noted Pedal (R), no edema noted Generalized SERA BERRY Dec 19, 2016 08:44
[2016-12-19 08:46] LABS: ALANINE AMINOTRANSFERASE 15 U/L (3-33); ANION GAP 14 (5-15); ASPARTATE AMINO TRANSFERASE 37 U/L (5-40); CALCIUM 8.4 mg/dL (8.6-10.2); CARBON DIOXIDE 21 mEQ/L (20-30); CHLORIDE 107 mEQ/L (98-107); CREATININE 0.8 mg/dL (0.5-0.9); GLOMERULAR FILTRATION RATE > 60 mL/min (>60); HEMOLYSIS 1; POTASSIUM 2.8 mEQ/L (3.4-4.9); SODIUM 142 mEQ/L (135-145); TOTAL PROTEIN 6.3 g/dL (6.6-8.7)
[2016-12-19] MEDS: Citalopram Hydrobromide 10 MG TAB ORAL SCH (08:46)
[2016-12-19] MEDS: Heparin 5000 units/ml inj SUBQ SCH ×2 (08:51→20:26)
[2016-12-19] MEDS: Cholestyramine 4gm Pkt ORAL PRN (12:31)
[2016-12-19 12:34] VITALS: BP 161/79
[2016-12-19 16:44] VITALS: BP 152/78
[2016-12-19 20:00] VITALS: BP_SYST 152; BP_SYST 163; BP_DIAS 78
[2016-12-20] VITALS: BP 149/79
[2016-12-20] MEDS: Norco 10mg/325mg tab ORAL PRN ×2 (00:40→06:53)
[2016-12-20] MEDS: D5 1/2NS w/KCl 20mEq 1,000 ML IV SCH ×2 (01:38→19:27)
[2016-12-20 04:00] VITALS: BP 145/73
[2016-12-20] MEDS: metroNIDAZOLE 500mg tab ORAL SCH ×3 (06:49→21:06)
[2016-12-20 08:25] LABS: ALANINE AMINOTRANSFERASE 22 U/L (3-33); ALBUMIN/GLOBULIN RATIO 0.9 (1.0-2.7); ANION GAP 15 (5-15); ASPARTATE AMINO TRANSFERASE 52 U/L (5-40); CALCIUM 8.7 mg/dL (8.6-10.2); CARBON DIOXIDE 19 mEQ/L (20-30); CHLORIDE 106 mEQ/L (98-107); CREATININE 0.9 mg/dL (0.5-0.9); GLOMERULAR FILTRATION RATE > 60 mL/min (>60); HEMOLYSIS 2; SODIUM 140 mEQ/L (135-145); TOTAL PROTEIN 6.9 g/dL (6.6-8.7)
--- NOTE | 2016-12-20 08:44 | General Progress Note ---
Assessment/Plan Problem List: (1) Diarrhea ICD Codes: R19.7 - Diarrhea, unspecified SNOMED: 59699027 Qualifiers: Qualified Codes: R19.7 - Diarrhea, unspecified (2) Vomiting ICD Codes: R11.10 - Vomiting, unspecified SNOMED: 321699675 Qualifiers: Qualified Codes: R11.14 - Bilious vomiting (3) Hypokalemia ICD Codes: E87.6 - Hypokalemia SNOMED: 08992644 (4) Gastroenteritis ICD Codes: K52.9 - Noninfective gastroenteritis and colitis, unspecified SNOMED: 68498160 (5) Chronic pain ICD Codes: G89.29 - Other chronic pain SNOMED: 80578980 Status: stable, not improved Assessment/Plan cont ivf check stool cdiff and cultures- asked staff to please collect abx follow up labs and replace, k start thryoid replacement pain rx not ready for dc. still with vomiting and diarrhea Subjective ROS Limited/Unobtainable: No Constitutional: Reports: malaise, weakness HEENT: Reports: no symptoms Cardiovascular: Reports: no symptoms Gastrointestinal/Abdominal: Reports: abdominal pain, diarrhea, nausea, vomiting Genitourinary: Reports: no symptoms Neurologic/Psychiatric: Reports: no symptoms Endocrine: Reports: no symptoms Hematologic/Lymphatic: Reports: no symptoms Allergies: Coded Allergies: HYDROMORPHONE (Verified Allergy, Unknown, 09/20/16) All Systems: reviewed and negative except above Subjective still with nausea and diarrhea. hypokalemic. bradycardic on monitor. still no cdiff or stool cultures collected yet. Objective Last 24 Hour Vital Signs Date Time Temp Pulse Resp B/P (MAP) Pulse Ox O2 Delivery O2 Flow Rate FiO2 12/20/16 04:00 97.0 54 20 145/73 98 Room Air 12/20/16 04:00 50 12/20/16 00:00 57 12/20/16 00:00 98.1 58 20 149/79 98 Room Air 12/19/16 20:00 56 12/19/16 20:00 97.7 62 18 163/78 99 Room Air 12/19/16 16:44 98.1 51 18 152/78 100 Room Air 12/19/16 16:00 65 12/19/16 12:34 98.1 49 18 161/79 100 Room Air 12/19/16 12:00 42 12/19/16 08:45 54 171/74 Laboratory Tests 12/20/16 08:00: Sodium Level 140, Potassium Level 3.0L, Chloride Level 106, Carbon Dioxide Level 19L, Anion Gap 15, Blood Urea Nitrogen 5L, Creatinine 0.9, Estimat Glomerular Filtration Rate > 60, Glucose Level 142H, Calcium Level 8.7, Total Bilirubin 0.6, Aspartate Amino Transf (AST/SGOT) 52H, Alanine Aminotransferase ( ALT/SGPT) 22, Alkaline Phosphatase 76, Total Protein 6.9, Albumin 3.4L, Globulin 3.5, Albumin/Globulin Ratio 0.9L Height (Feet): 5 Height (Inches): 7.00 Weight (Pounds): 140 SERA BERRY Dec 20, 2016 08:44
[2016-12-20 08:54] VITALS: BP 137/76
[2016-12-20] MEDS: Citalopram Hydrobromide 10 MG TAB ORAL SCH (08:56)
[2016-12-20] MEDS: Heparin 5000 units/ml inj SUBQ SCH ×2 (08:58→21:08)
[2016-12-20 12:09] VITALS: BP 144/68
[2016-12-20] MEDS: Morphine Sulfate 2mg/ml Inj IVP PRN ×3 (12:29→22:21)
[2016-12-20 16:12] VITALS: BP 153/79
[2016-12-20 20:00] VITALS: BP 160/71
[2016-12-20] MEDS: Cholestyramine 4gm Pkt ORAL PRN (20:13)
[2016-12-21] VITALS: BP 169/76
[2016-12-21] MEDS: Morphine Sulfate 2mg/ml Inj IVP PRN ×3 (03:40→11:54)
[2016-12-21 04:00] VITALS: BP 156/80
--- NOTE | 2016-12-21 06:00 | Consultation ---
DATE OF CONSULTATION: 12/17/2016 CARDIOLOGY CONSULTATION REQUESTING PHYSICIAN: Johnie Galdamez M.D. REASON FOR CONSULTATION: Cardiac arrhythmias. History Of Present Illness: This is a 66-year-old female presented to the emergency room with abdominal pain, vomiting, and diarrhea, which she described occurring after eating a burrito at home. Other family members also that is what she described as food poisoning. Her symptoms however were much worse and prompted her to seek attention in the emergency room. The patient's emergency room workup was notable for an abnormal EKG with electrolyte abnormalities prompting this consultation. PAST MEDICAL HISTORY: Hypertension and breast cancer in remission. ALLERGIES: Hydromorphone. MEDICATIONS: Prior to admission, reviewed and reconciled. SOCIAL HISTORY: Negative for smoking, alcohol, or substance abuse. FAMILY HISTORY: Noncontributory. Review Of Systems: No fevers. No cough. No leg swelling. No history of myocardial infarction. No history of melena or bright red blood per rectum. No history of thyroid disorder or diabetes. PHYSICAL EXAMINATION: GENERAL: Afebrile. Vital Signs: Blood pressure 173/107, pulse 84, and respiratory rate 23. HEENT: Conjunctivae are pink. Oropharynx clear. NECK: supple. LUNGS: Clear. Cardiac: Regular rhythm and rate. Normal S1 and S2. There is occasional ectopic beat. No murmur. ABDOMEN: Soft. No focal tenderness. No guarding or rebound. EXTREMITIES: Without edema. NEUROLOGIC: Nonfocal. Laboratory And Diagnostic Data: Troponin negative. EKG with sinus rhythm, left anterior superior hemiblock, right bundle-branch block, and occasional PVC. White count 9.2 and hemoglobin 14.1. Potassium 3.3, BUN 7, creatinine 0.8, and glucose 324. Albumin is 3.2. IMPRESSION: 1. Gastroenteritis. 2. Hypokalemia. 3. Conduction system disease of the heart. 4. Ventricular ectopy. 5. Hyperglycemia. PLAN: 1. Antiemetics. 2. Potassium replacement. 3. IV fluid hydration. 4. Glucose monitoring. 5. Check magnesium level. 6. DVT prophylaxis. Eder Hanson M.D. DR: EZEQUIEL JOB#: [id number] CC:
[2016-12-21] MEDS: D5 1/2NS w/KCl 20mEq 1,000 ML IV SCH (06:05)
[2016-12-21] MEDS: metroNIDAZOLE 500mg tab ORAL SCH (06:05)
--- NOTE | 2016-12-21 06:15 | Progress Note ---
DATE: 12/18/2016 CARDIOLOGY PROGRESS NOTE Late entry for 12/18/2016. Subjective: The patient still has nausea and vomiting. Her abdominal pain has resolved. OBJECTIVE: Vital Signs: Blood pressure 129/64, pulse 56, and respiratory rate 20. LUNGS: Clear. CARDIAC: Regular. Occasional ectopic beats. ABDOMEN: Soft. EXTREMITIES: No edema. IMPRESSION: 1. Bradycardia. 2. Ventricular ectopy. 3. Hypokalemia. 4. Hypomagnesemia. 5. Gastroenteritis. 6. Conduction system disease of the heart with bifascicular block. PLAN: 1. Check thyroid panel. 2. Continue replacement of potassium and magnesium. 3. DVT prophylaxis. 4. IV fluid hydration. 5. Antiemetics. 6. Titrate antihypertensives based on clinical parameters. 7. Avoid beta-blockers in view of bradycardia. Eder Hanson M.D. DR: EZEQUIEL JOB#: [id number] CC:
--- NOTE | 2016-12-21 06:15 | Progress Note ---
DATE: 12/19/2016 CARDIOLOGY PROGRESS NOTE Late entry Subjective: The patient has no more vomiting, still with nausea, still with diarrhea. Monitor with sinus bradycardia and occasional PVCs. PHYSICAL EXAMINATION: Vital Signs: Blood pressure 129/64 to 131/74, heart rate 47 to 62, and respiratory rate 20. NECK: Supple. LUNGS: Clear. CARDIAC: Regular. Slow S1 and S2. ABDOMEN: Soft. No edema. LABORATORY DATA: Laboratories noted. IMPRESSION: 1. Gastroenteritis. 2. Bradycardia exacerbated by increased vagal tone due to vomiting and nausea. 3. Hypertension. 4. Hypokalemia. 5. Hypomagnesemia. 6. History of breast cancer. 7. Possible hypothyroidism. 8. Conduction system disease of the heart with bifascicular block. PLAN: 1. Continue hydration. 2. Continue potassium and magnesium replacement. 3. Consider thyroid replacement. 4. Echocardiogram. Eder Hanson M.D. DR: TAYLER JOB#: [id number] CC:
--- NOTE | 2016-12-21 06:30 | Progress Note ---
DATE: 12/20/2016 CARDIOLOGY PROGRESS NOTE Subjective: The patient feels better. Monitor reveals sinus bradycardia with rare PVCs. Blood pressure range has improved. PHYSICAL EXAMINATION: Vital Signs: Blood pressure 137/76, pulse 54, and respiratory rate 18. NECK: Supple. LUNGS: Clear. Cardiac: Regular. Normal S1 and S2 with a fourth heart sound. Occasional ectopic beats. ABDOMEN: Soft. EXTREMITIES: No edema. IMPRESSION: 1. Hypokalemia. 2. Hypomagnesemia. 3. Gastroenteritis. 4. Hypovolemia, resolved. 5. Hypertension. 6. Bifascicular heart block. 7. Ventricular ectopy nonsustained. 8. Sinus bradycardia. 9. Hypothyroidism. PLAN: 1. Continue nifedipine. 2. Continue hydration and electrolyte replacement. 3. Recheck potassium and magnesium levels. 4. Thyroid replacement started. 5. Await echocardiogram to assess for structural heart disease. Eder Hanson M.D. DR: EZEQUIEL JOB#: [id number] CC:
[2016-12-21 08:23] VITALS: BP 167/76
[2016-12-21] MEDS ORDERED: SYNTHROID50 MCG ORAL (08:23)
[2016-12-21] MEDS ORDERED: NORVASC5 MG ORAL (08:23)
[2016-12-21 09:07] LABS: ALANINE AMINOTRANSFERASE 26 U/L (3-33); ALBUMIN/GLOBULIN RATIO 0.9 (1.0-2.7); ANION GAP 16 (5-15); ASPARTATE AMINO TRANSFERASE 51 U/L (5-40); CALCIUM 8.6 mg/dL (8.6-10.2); CARBON DIOXIDE 17 mEQ/L (20-30); CHLORIDE 105 mEQ/L (98-107); CREATININE 0.9 mg/dL (0.5-0.9); GLOMERULAR FILTRATION RATE > 60 mL/min (>60); HEMOLYSIS 3; MAGNESIUM 1.4 mg/dL (1.7-2.5); POTASSIUM 3.3 mEQ/L (3.4-4.9); SODIUM 138 mEQ/L (135-145); TOTAL PROTEIN 6.5 g/dL (6.6-8.7)
[2016-12-21] MEDS: Citalopram Hydrobromide 10 MG TAB ORAL SCH (09:41)
[2016-12-21] MEDS: Heparin 5000 units/ml inj SUBQ SCH (09:43)
[2016-12-21 12:35] VITALS: BP 165/95
--- NOTE | 2016-12-21 19:16 | Discharge Summary ---
DATE OF ADMISSION: 12/17/2016 DATE OF DISCHARGE: 12/21/2016 ADMISSION DIAGNOSES: 1. Intractable nausea and vomiting. 2. Diarrhea. 3. Colitis. 4. Hypertension, out of control. 5. Bradycardia. DISCHARGE DIAGNOSES: 1. Intractable nausea and vomiting. 2. Diarrhea. 3. Colitis. 4. Hypertension, out of control. 5. Bradycardia. 6. Likely gastroenteritis and colitis. 7. Hypothyroidism. Hospital Course: This is a very pleasant female who presents with complaints of intractable nausea and vomiting. She was admitted. She had a CAT scan of the abdomen that showed colitis. She did have diarrhea for unclear reasons. C. difficile was unable to be collected from the patient. She was initially empirically treated for C. difficile with Flagyl, symptoms improved gradually. She was also noted to be bradycardic as well as hypertensive. She was started on thyroid replacement therapy. She required frequent electrolyte replacement. On discharge, she was doing well. Diarrhea was improving. She will be discharged home on antibiotics for possible C. difficile. We will consider repeat CAT scan as outpatient to make sure the patient's colitis is resolved. DIET: [place] diet. ACTIVITY: [place]. Followup: The patient will follow up in one to two weeks in the office. Johnie Galdamez M.D. DR: ALBERT JOB#: [id number] CC:
--- NOTE | 2016-12-22 06:02 | Progress Note ---
DATE: 12/21/2016 CARDIOLOGY PROGRESS NOTE Subjective: The patient without any new complaints. No nausea, vomiting, or abdominal pain. No dizziness or loss of consciousness. OBJECTIVE: Vital Signs: Blood pressure 167/76, pulse 64, respirations 20, and afebrile. NECK: Supple. LUNGS: Clear. CARDIAC: Regular. Normal S1 and S2 with a fourth heart sound. ABDOMEN: Soft. No edema. DIAGNOSTIC DATA: Echocardiogram reviewed, results noted. IMPRESSION: 1. Bradycardia, asymptomatic and resolved. 2. Hypokalemia, corrected. 3. Hypertension with hypertensive heart disease, still suboptimally controlled, but improving. 4. Hypomagnesemia. 5. Hypothyroidism. 6. Conduction system disease with bifascicular block. PLAN: 1. Maintain adequate oral hydration, now off IV fluids. 2. Monitor electrolytes as an outpatient. 3. Reassess thyroid function and consider thyroid replacement as an outpatient in the future. 4. Diet advanced to regular at this time. Eder Hanson M.D. DR: TAYLER JOB#: [id number] CC:
--- NOTE | 2016-12-25 16:10 | Cardiology Report ---
APPROVED REPORT EXAM: Two-dimensional and M-mode echocardiogram with Doppler and color Doppler. INDICATION Arrhythmia M-Mode DIMENSIONS IVSd1.3 (0.7-1.1cm)Left Atrium (MM)3.6 (1.6-4.0cm) LVDd3.5 (3.5-5.6cm)Aortic Root2.7 (2.0-3.7cm) PWd0.9 (0.7-1.1cm)Aortic Cusp Exc.1.8 (1.5-2.0cm) LVDs2.3 (2.5-4.0cm) PWs1.0 cm Normal left ventricular chamber size, systolic function and wall motion. Left ventricular ejection fraction estimated to be 60-65 %. Mild concentric left ventricular hypertrophy. No evidence of pericardial effusion. All other cardiac chamber sizes are within normal limits. Focal aortic valve sclerosis with adequate cusp excursion. Thickened mitral valve leaflets with normal excursion. Mild mitral annulus and aortic root calcification. Pulmonic valve not well visualized. Normal tricuspid valve structure. IVC is normal in size with physiological collapse. A color flow and spectral Doppler study was performed and revealed: No mitral regurgitation. Mitral diastolic velocities suggest reduced left ventricular relaxation c/w diastolic dysfunction grade 1. No tricuspid regurgitation.
== END 2016-12-21 12:54 | disposition home health service (06) | DRG 392 ==
LOC: EMR 17:32 → EDBEDREQSVC 19:25 → EDBEDREQ 19:25 → 2E 20:42
DX: K52.9 Noninfective gastroenteritis and colitis, unspecified (principal); E83.42 Hypomagnesemia; I10 Essential (primary) hypertension; I45.2 Bifascicular block; E87.6 Hypokalemia; Z85.3 Personal history of malignant neoplasm of breast; Z88.8 Allergy status to other drugs, medicaments and biological substances; G89.29 Other chronic pain; M54.5 Low back pain; E03.9 Hypothyroidism, unspecified; I49.3 Ventricular premature depolarization
CPT/HCPCS: 36415; 74177; 80053; 81003; 83036; 83690; 83735; 84443; 85025; 87081; 87324; 93005; 93306; 99285; J2405; J2765; J8499

== ENCOUNTER 2017-01-03 14:33 | Emergency (ER) | payer MEDICARE, MEDICAID ==
[~2017-01-03] VITALS: Ht 167.6 cm; Wt 65.8 kg
[2017-01-03 14:33] VITALS: BP 118/71
[~2017-01-03 14:33] MED LIST changes: +NORVASC5 MG ORAL; +SYNTHROID50 MCG ORAL
[2017-01-03 15:11] LABS: APPEARANCE,URINE CLEAR; BASOPHILS % (AUTO) 0.6 % (0.0-2.0); EOSINOPHILS % (AUTO) 2.1 % (0.0-3.0); KETONES,URINE NEGATIVE (NEGATIVE); LEUKOCYTE ESTERASE ,URINE 1+ (NEGATIVE); LYMPHOCYTES % (AUTO) 29.5 % (20.0-45.0); MEAN CORPUSCULAR HGB CONC 30.1 G/DL (32.0-36.0); MEAN CORPUSCULAR VOLUME 96 FL (80-99); MEAN PLATELET VOLUME 6.7 FL (6.5-10.1); MONOCYTES % (AUTO) 12.6 % (1.0-10.0); NEUTROPHILS % (AUTO) 55.3 % (45.0-75.0); NITRITE,URINE NEGATIVE (NEGATIVE); PH,URINE 7 (4.5-8.0); PLATELET COUNT 208 K/UL (150-450); PROTEIN,URINE 1+ (NEGATIVE); RED BLOOD COUNT 3.94 M/UL (4.20-5.40); RED CELL DISTRIBUTION WIDTH 15.3 % (11.6-14.8); UROBILINOGEN,URINE NORMAL MG/DL (0.0-1.0); WHITE BLOOD COUNT 4.8 K/UL (4.8-10.8)
[2017-01-03 15:24] LABS: RBC,URINE 0-2 /HPF (0 - 2)
[2017-01-03 15:25] LABS: AMORPHOUS SEDIMENT,UR MODERATE /LPF; BACTERIA,URINE MODERATE /HPF; SQUAMOUS EPITHELIAL CELL,UR MODERATE /LPF (NONE/OCC)
[2017-01-03 15:33] LABS: TROPONIN I < 0.30 ng/mL (<=0.30)
[2017-01-03 15:34] LABS: ACETAMINOPHEN < 10 ug/mL (10-30); ALANINE AMINOTRANSFERASE 23 U/L (3-33); ALBUMIN/GLOBULIN RATIO 0.9 (1.0-2.7); ALCOHOL < 10 mg/dL; ANION GAP 14 (5-15); ASPARTATE AMINO TRANSFERASE 41 U/L (5-40); CALCIUM 9.5 mg/dL (8.6-10.2); CARBON DIOXIDE 24 mEQ/L (20-30); CHLORIDE 101 mEQ/L (98-107); CREATININE 1.3 mg/dL (0.5-0.9); GLOMERULAR FILTRATION RATE 49.8 mL/min (>60); HEMOLYSIS 4; SODIUM 139 mEQ/L (135-145); TOTAL PROTEIN 6.9 g/dL (6.6-8.7)
[2017-01-03 15:44] LABS: CKMB < 1.5 ng/mL (< 3.8)
--- NOTE | 2017-01-03 15:56 | Emergency Room Report ---
History of Present Illness General Chief Complaint: Altered Level of Consciousness Source: Patient, EMS Present Illness HPI 66-year-old female presents ED for evaluation. Per EMS patient found more lethargic than usual x1 day. Family called 911. Patient states she took a muscle relaxer but denies taking any other medications. Patient denies any headaches, blurry vision. Denies chest pain shortness of breath. No other aggravating relieving factors. Denies any other associated symptoms Allergies: Coded Allergies: No Known Allergies (Unverified , 12/20/16) NKA Patient History Past Medical History: HTN Past Surgical History: none Pertinent Family History: none Social History: Reports: drug use, Denies: smoking, alcohol use Last Menstrual Period: N/A Now: No Immunizations: UTD Reviewed Nursing Documentation: PMH: Agreed, PSxH: Agreed Nursing Documentation-PMH Past Medical History: No History, Except For Hx Cardiac Problems: Yes - UNK Hx Hypertension: Yes Hx Pacemaker: No - BACK PAIN Hx Asthma: No - Bronchitis Hx COPD: No Hx Cancer: Yes Hx Gastrointestinal Problems: No Hx Neurological Problems: No Review of Systems All Other Systems: negative except mentioned in HPI Physical Exam Vital Signs Date Time Temp Pulse Resp B/P (MAP) Pulse Ox O2 Delivery O2 Flow Rate FiO2 01/03/17 14:20 98.2 92 16 131/69 99 Room Air Sp02 EP Interpretation: reviewed, normal General Appearance: no apparent distress, lethargic Head: normocephalic ENT: normal ENT inspection Neck: normal inspection Respiratory: chest non-tender, lungs clear, normal breath sounds, speaking full sentences Cardiovascular #1: regular rate, rhythm, no edema Gastrointestinal: normal bowel sounds, non tender, soft, non-distended, no guarding, no rebound Rectal: deferred Genitourinary: no CVA tenderness Musculoskeletal: back normal Neurologic: other - lethargic Psychiatric: other - lethargic Skin: normal inspection Lymphatic: normal inspection Medical Decision Making Diagnostic Impression: Primary Impression: Altered level of consciousness Additional Impression: Substance abuse ER Course Hospital Course 66-year-old female presents ED, more altered and usual x1 day Differential diagnoses include: Psychosis, EtOH, drug abuse Clinical course patient placed on stretcher. On monitoring tech. After initial history and physical ordered labs, IV fluids, EKG, CT brain. Labs reviewed-electrolytes okay, no leukocytosis, hemoglobin/hematocrit stable, tox panel + for multilple substances EKG - NSR, no acute changes interpreted by me CT brain shows no acute pathology Patient is now awake alert oriented x3, ambulating. Family at bedside willing to take patient home i. I feel this is a highly complex case requiring extensive working including EKG/Rhythm strip, Xray/CT/US, Blood/urine lab work, repeat exams while in ED, and administration of strong opiates/narcotics for pain control, admission to hospital or close patient follow up. Diagnosis - ALOC, substance abuse Stable and discharged to home. Followup with PMD. Return to ED if symptoms recur or worsen Labs Test 01/03/17 15:00 White Blood Count 4.8 K/UL (4.8-10.8) Red Blood Count 3.94 M/UL (4.20-5.40) Hemoglobin 11.4 G/DL (12.0-16.0) Hematocrit 38.0 % (37.0-47.0) Mean Corpuscular Volume 96 FL (80-99) Mean Corpuscular Hemoglobin 29.0 PG (27.0-31.0) Mean Corpuscular Hemoglobin Concent 30.1 G/DL (32.0-36.0) Red Cell Distribution Width 15.3 % (11.6-14.8) Platelet Count 208 K/UL (150-450) Mean Platelet Volume 6.7 FL (6.5-10.1) Neutrophils (%) (Auto) 55.3 % (45.0-75.0) Lymphocytes (%) (Auto) 29.5 % (20.0-45.0) Monocytes (%) (Auto) 12.6 % (1.0-10.0) Eosinophils (%) (Auto) 2.1 % (0.0-3.0) Basophils (%) (Auto) 0.6 % (0.0-2.0) Urine Color Yellow Urine Appearance Clear Urine pH 7 (4.5-8.0) Urine Specific [place] 1.005 (1.005-1.035) Urine Protein 1+ (NEGATIVE) Urine Glucose (UA) Negative (NEGATIVE) Urine Ketones Negative (NEGATIVE) Urine Occult Blood Negative (NEGATIVE) Urine Nitrite Negative (NEGATIVE) Urine Bilirubin Negative (NEGATIVE) Urine Urobilinogen Normal MG/DL (0.0-1.0) Urine Leukocyte Esterase 1+ (NEGATIVE) Urine RBC 0-2 /HPF (0 - 2) Urine WBC 2-4 /HPF (0 - 2) Urine Squamous Epithelial Cells Moderate /LPF (NONE/OCC) Urine Amorphous Sediment Moderate /LPF (NONE) Urine Bacteria Moderate /HPF (NONE) Sodium Level 139 mEQ/L (135-145) Potassium Level 3.0 mEQ/L (3.4-4.9) Chloride Level 101 mEQ/L (98-107) Carbon Dioxide Level 24 mEQ/L (20-30) Anion Gap 14 (5-15) Blood Urea Nitrogen 20 mg/dL (7-23) Creatinine 1.3 mg/dL (0.5-0.9) Estimat Glomerular Filtration Rate 49.8 mL/min (>60) Glucose Level 96 mg/dL (74-106) Calcium Level 9.5 mg/dL (8.6-10.2) Total Bilirubin 0.3 mg/dL (0.0-1.2) Aspartate Amino Transf (AST/SGOT) 41 U/L (5-40) Alanine Aminotransferase (ALT/SGPT) 23 U/L (3-33) Alkaline Phosphatase 83 U/L (35-104) Total Creatine Kinase 45 U/L (26-140) Creatine Kinase MB < 1.5 ng/mL (< 3.8) Creatine Kinase MB Relative Index Troponin I < 0.30 ng/mL (<=0.30) Total Protein 6.9 g/dL (6.6-8.7) Albumin 3.4 g/dL (3.5-5.2) Globulin 3.5 g/dL Albumin/Globulin Ratio 0.9 (1.0-2.7) Salicylates Level < 1 mg/dL (10-30) Urine Opiates Screen Positive (NEGATIVE) Acetaminophen Level < 10 ug/mL (10-30) Urine Barbiturates Screen Negative (NEGATIVE) Phencyclidine (PCP) Screen Negative (NEGATIVE) Urine Amphetamines Screen Negative (NEGATIVE) Urine Benzodiazepines Screen Positive (NEGATIVE) Urine Cocaine Screen Negative (NEGATIVE) Urine Marijuana (THC) Screen Negative (NEGATIVE) Serum Alcohol < 10 mg/dL EKG Diagnostic Results Rate: normal Rhythm: NSR ST Segments: no acute changes ASA given to the pt in ED: No Rhythm Strip Diag. Results EP Interpretation: yes Rhythm: NSR, no PVC's, no ectopy CT/MRI/US Diagnostic Results CT/MRI/US Diagnostic Results : Imaging Test Ordered: CT head Impression no acute process Last Vital Signs Date Time Temp Pulse Resp B/P (MAP) Pulse Ox O2 Delivery O2 Flow Rate FiO2 01/03/17 14:33 98.3 74 19 118/71 100 Room Air Status: improved Disposition: HOME, SELF-CARE Condition: Stable TESSA BURGESS M.D. Jan 03, 2017 15:56
[2017-01-03 16:35] VITALS: BP 125/59
--- NOTE | 2017-01-03 16:39 | Diagnostic Imaging Report ---
Indications: Altered mental status Technique: Spiral acquisitions obtained through the brain. Angled axial and coronal 5 x 5 mm slices were reconstructed. Total dose length product 1397 mGycm. CTDI vol(s) 70 mGy. Dose reduction achieved using automated exposure control Comparison: 07/21/2010 Findings: There is mild age-related enlargement of the ventricles and to lesser extent extra axial CSF spaces, stable. No acute hemorrhage or edema. No mass effect or midline shift. Normal talamantes-white differentiation. Intact calvarium. Visualized orbits and sinuses are unremarkable Impression: No acute process Mild age-related prominence to the ventricles, also previously demonstrated The CT scanner at [facility] is accredited by the [employer] and the scans are performed using protocols designed to limit radiation exposure to as low as reasonably achievable to attain images of sufficient resolution adequate for diagnostic evaluation.
[2017-01-03 16:52] VITALS: BP 128/63
== END 2017-01-03 16:54 | disposition home or self-care (01) ==
LOC: EDBD 14:33 → EMR 15:03
DX: R41.82 Altered mental status, unspecified (principal); F19.10 Other psychoactive substance abuse, uncomplicated; R53.83 Other fatigue; I10 Essential (primary) hypertension
CPT/HCPCS: 36415; 70450; 80053; 80300; 81003; 82550; 82553; 84484; 85025; 87086; 93005; 96360; 99284; G0480; 80329

== ENCOUNTER 2017-10-14 13:32 | Emergency (ER) | payer MEDICAID, MEDICARE, OTHER ==
[~2017-10-14] VITALS: Ht 167.6 cm; Wt 59.0 kg
[2017-10-14 13:26] VITALS: BP 180/90
[2017-10-14] MEDS ORDERED: Isovue-300 100ml vial INJ PRN (14:15)
[2017-10-14] MEDS ORDERED: Gastrograffin 30ml ORAL PRN (14:15)
[2017-10-14] MEDS ORDERED: Morphine Sulfate 4mg/ml Inj IVP ONE ×3 (14:15→18:30)
[2017-10-14 14:26] LABS: BASOPHILS % (AUTO) 1.1 % (0.0-2.0); EOSINOPHILS % (AUTO) 0.6 % (0.0-3.0); HEMATOCRIT 39.7 % (37.0-47.0); HEMOGLOBIN 12.4 G/DL (12.0-16.0); LYMPHOCYTES % (AUTO) 10.2 % (20.0-45.0); MEAN CORPUSCULAR VOLUME 92 FL (80-99); MONOCYTES % (AUTO) 6.2 % (1.0-10.0); NEUTROPHILS % (AUTO) 81.9 % (45.0-75.0); PLATELET COUNT 202 K/UL (150-450); WHITE BLOOD COUNT 9.2 K/UL (4.8-10.8)
[2017-10-14 14:42] LABS: ALANINE AMINOTRANSFERASE 30 U/L (12-78); ALBUMIN 3.3 G/DL (3.4-5.0); ALBUMIN/GLOBULIN RATIO 0.7 (1.0-2.7); ALKALINE PHOSPHATASE 164 U/L (46-116); ANION GAP 11 mmol/L (5-15); ASPARTATE AMINO TRANSFERASE 73 U/L (15-37); BILIRUBIN,TOTAL 0.6 MG/DL (0.2-1.0); BLOOD UREA NITROGEN 11 mg/dL (7-18); CALCIUM 9.9 MG/DL (8.5-10.1); CARBON DIOXIDE 22 MMOL/L (21-32); CHLORIDE 106 MMOL/L (98-107); CREATININE 1.1 MG/DL (0.55-1.30); SODIUM 141 MMOL/L (136-145)
[2017-10-14 14:44] LABS: POTASSIUM 2.5 MMOL/L (3.5-5.1)
--- NOTE | 2017-10-14 14:52 | Emergency Room Report ---
History of Present Illness General Chief Complaint: Abdominal Pain Source: Patient Present Illness HPI Patient presents with right upper quadrant pain. This been going for a few days but became severe this morning. She's been vomiting. The pain radiates to her back. She's never had surgery there. She is vomiting bile at this time. There is no coffee grounds or blood. Her stools been somewhat loose but she denies any melena or blood in the stool. There is no dysuria. She feels weakness. The pain is 9/10 at this time and constant and aching and pressure. 4 weeks ago she was admitted after loss of consciousness being told that she had a seizure. She was started on a medication and then started developing a rash and the medicine was stopped at that time. History of hypertension. The patient alleges that she has cancer also. The details are unclear. Per our records, h/o breast cancer. 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 Now: No Reviewed Nursing Documentation: PMH: Agreed; PSxH: Agreed Nursing Documentation-PMH Hx Cardiac Problems: Yes Hx Hypertension: Yes Hx Pacemaker: No Hx Asthma: No - Bronchitis Hx COPD: No Hx Cancer: Yes - left breast Hx Gastrointestinal Problems: No Hx Neurological Problems: No Hx Seizures: Yes Review of Systems All Other Systems: negative except mentioned in HPI Physical Exam Vital Signs Date Time Temp Pulse Resp B/P (MAP) Pulse Ox O2 Delivery O2 Flow Rate FiO2 10/14/17 13:11 98.2 88 16 130/70 97 Room Air 98.2 Sp02 EP Interpretation: reviewed, normal General Appearance: GCS 15, mild distress Head: normocephalic Eyes: bilateral eye normal inspection, bilateral eye PERRL ENT: moist mucus membranes Neck: supple Respiratory: lungs clear, normal breath sounds Cardiovascular #1: regular rate, rhythm Cardiovascular #2: 2+ radial (R) Gastrointestinal: normal inspection, normal bowel sounds, no mass, non- distended, no rebound, guarding - RUQ, tenderness Musculoskeletal: back normal, gait/station normal, normal range of motion Neurologic: alert, oriented x3, grossly normal Psychiatric: mood/affect normal Skin: warm/dry, other - Hyperpigmented lesions arms and legs Medical Decision Making Diagnostic Impression: Primary Impression: Abdominal pain Qualified Codes: R10.11 - Right upper quadrant pain Additional Impressions: Hypokalemia HTN (hypertension) Qualified Codes: I10 - Essential (primary) hypertension History of breast cancer ER Course Patient presents with right upper quadrant pain with significant guarding. Differential includes cholecystitis, cholelithiasis, peptic ulcer disease, pancreatitis, GERD amongst other Patient will be evaluated with EKG, chest x- ray and CT the abdomen with labs. The patient will be treated with IV hydration and analgesia. EKG without acute injury with a right axis deviation. Chest x-ray surgical clips in the breast. Potassium is extremely low. She's given oral and IV potassium replacement. Improved slightly after analgesia. Tolerated potassium. Discussed with Dr. Corona who accepts. We are pending CT. Signed out CT to Dr. Katz. Laboratory Tests Test 10/14/17 13:30 10/14/17 15:45 White Blood Count 9.2 K/UL (4.8-10.8) Red Blood Count 4.30 M/UL (4.20-5.40) Hemoglobin 12.4 G/DL (12.0-16.0) Hematocrit 39.7 % (37.0-47.0) Mean Corpuscular Volume 92 FL (80-99) Mean Corpuscular Hemoglobin 28.7 PG (27.0-31.0) Mean Corpuscular Hemoglobin Concent 31.1 G/DL (32.0-36.0) L Red Cell Distribution Width 14.0 % (11.6-14.8) Platelet Count 202 K/UL (150-450) Mean Platelet Volume 7.3 FL (6.5-10.1) Neutrophils (%) (Auto) 81.9 % (45.0-75.0) H Lymphocytes (%) (Auto) 10.2 % (20.0-45.0) L Monocytes (%) (Auto) 6.2 % (1.0-10.0) Eosinophils (%) (Auto) 0.6 % (0.0-3.0) Basophils (%) (Auto) 1.1 % (0.0-2.0) Prothrombin Time 10.1 SEC (9.30-11.50) Prothrombin Time INR 1.0 (0.9-1.1) PTT 22 SEC (23-33) L Sodium Level 141 MMOL/L (136-145) Potassium Level 2.5 MMOL/L (3.5-5.1) *L Chloride Level 106 MMOL/L (98-107) Carbon Dioxide Level 22 MMOL/L (21-32) Anion Gap 11 mmol/L (5-15) Blood Urea Nitrogen 11 mg/dL (7-18) Creatinine 1.1 MG/DL (0.55-1.30) Estimate Glomerular Filtration Rate > 60 mL/min (>60) Glucose Level 119 MG/DL (74-106) H Calcium Level 9.9 MG/DL (8.5-10.1) Total Bilirubin 0.6 MG/DL (0.2-1.0) Aspartate Amino Transferase (AST) 73 U/L (15-37) H Alanine Aminotransferase (ALT) 30 U/L (12-78) Alkaline Phosphatase 164 U/L (46-116) H Troponin I 0.000 ng/mL (0.000-0.056) Total Protein 8.2 G/DL (6.4-8.2) Albumin 3.3 G/DL (3.4-5.0) L Globulin 4.9 g/dL Albumin/Globulin Ratio 0.7 (1.0-2.7) L Lipase 148 U/L (73-393) Urine Color Pale yellow Urine Appearance Clear Urine pH 7 (4.5-8.0) Urine Specific [place] 1.005 (1.005-1.035) Urine Protein 1+ (NEGATIVE) H Urine Glucose (UA) Negative (NEGATIVE) Urine Ketones 1+ (NEGATIVE) H Urine Occult Blood Negative (NEGATIVE) Urine Nitrite Negative (NEGATIVE) Urine Bilirubin Negative (NEGATIVE) Urine Urobilinogen Normal MG/DL (0.0-1.0) Urine Leukocyte Esterase Negative (NEGATIVE) Urine RBC 0-2 /HPF (0 - 2) Urine WBC 0-2 /HPF (0 - 2) Urine Squamous Epithelial Cells Few /LPF (NONE/OCC) Urine Amorphous Sediment Few /LPF (NONE) H Urine Bacteria Few /HPF (NONE) EKG Diagnostic Results Rate: normal Rhythm: NSR ST Segments: no acute changes - Right axis Rhythm Strip Diag. Results EP Interpretation: yes Rhythm: NSR, no PVC's, no ectopy Chest X-Ray Diagnostic Results Chest X-Ray Diagnostic Results : Chest X-Ray Ordered: Yes # of Views/Limited/Complete: 1 View Indication: Other EP Interpretation: Yes Interpretation: no consolidation, no effusion, no pneumothorax, other - surgical clips L Impression: Other Electronically Signed by: Eder Flores MD Last Vital Signs Date Time Temp Pulse Resp B/P (MAP) Pulse Ox O2 Delivery O2 Flow Rate FiO2 10/14/17 21:10 98.2 65 16 179/69 100 Room Air 98.2 Status: improved Disposition: [facility]FER [facility] Condition: Serious Eder Flores M.D. Oct 14, 2017 14:52
[2017-10-14 15:35] VITALS: BP 161/67
[2017-10-14 16:13] LABS: APPEARANCE,URINE CLEAR; BILIRUBIN, URINE NEGATIVE (NEGATIVE); COLOR,URINE PALE YELLOW; GLUCOSE, URINE (UA) NEGATIVE (NEGATIVE); KETONES,URINE 1+ (NEGATIVE); LEUKOCYTE ESTERASE ,URINE NEGATIVE (NEGATIVE); NITRITE,URINE NEGATIVE (NEGATIVE); PH,URINE 7 (4.5-8.0); PROTEIN,URINE 1+ (NEGATIVE); UROBILINOGEN,URINE NORMAL MG/DL (0.0-1.0)
[2017-10-14 17:40] VITALS: BP 154/68
[2017-10-14] MEDS ORDERED: BYSTOLIC5 MG ORAL (17:58)
[2017-10-14] MEDS ORDERED: VALIUM2 MG ORAL (17:58)
[2017-10-14] MEDS ORDERED: ACETAMINOPHEN-1 EAC2 ORAL (17:58)
[2017-10-14 19:30] VITALS: BP 191/71
[2017-10-14 21:00] VITALS: BP 148/68
[2017-10-14 21:10] VITALS: BP 179/69
--- NOTE | 2017-10-15 10:21 | Diagnostic Imaging Report ---
Indication: Abdominal pain Technique: Continuous helical transaxial imaging of the abdomen and pelvis was obtained from the lung bases to the pubic symphysis during intravenous contrast administration. Coronal 2-D reformats were also obtained. Study obtained in a Siemens sensation [address] Automatic Exposure Control was utilized. Total Dose length Product (DLP): 573.[address] Dose Index Volume (CTDIvol): 10.82 mGy Comparison: 12/17/2016 Findings: There are multifocal, ill-defined hypodense masses within the liver particularly in the right lobe. The findings consistent with neoplasm that has progressed. This is likely metastatic disease. There is thrombosis of the right portal vein. Part of the main portal vein is also thrombosed. The portal confluence is clear. The left portal vein is clear. Thrombosis is new and not seen on the prior occasion. The lung bases are clear. Arterial vascular calcifications are present. Pancreas is unremarkable. The spleen is unremarkable. Bilateral renal cysts are noted. Diverticula noted in the colon. Prominent wall thickening noted in the portion of the sigmoid colon. This may be an undistended or spasmodic segment. Tumor is not excluded. Please correlate clinically. Colonoscopy is recommended. Few other locations in the colon demonstrates similar findings with either spasm or small tumor including the areas in the transverse colon and distal sigmoid. Gas conditions and heterogeneous mass centered due to fibroids noted within the uterus. There is no obvious pelvic sidewall, iliac or inguinal lymphadenopathy identified. No obvious retroperitoneal adenopathy identified. No evidence of bowel obstruction, free fluid or free air. The bladder is unremarkable. IMPRESSION: Progressive malignant neoplasm likely metastatic disease involving the right lobe of the liver. 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 Stigmata of a previous lumpectomy. Segments of subpulmonic nondistended colon versus tumor. Colonoscopy follow-up suggested. Uterine fibroids Atherosclerotic disease c Hiatal hernia Bilateral renal cysts [facility] has communicated the preliminary results to the Emergency Department. Their findings are largely concordant with this report. The CT scanner at [facility] is accredited by the [employer] and the scans are performed using dose optimization techniques as appropriate to a performed exam including Automatic Exposure control.
--- NOTE | 2017-10-15 12:24 | Diagnostic Imaging Report ---
Indication: Dyspnea Comparison: 12/02/2016 A single view chest radiograph was obtained. Findings: Cardiomediastinal appearance is within normal limits for age. Surgical clips in the left axilla noted. Pulmonary vascularity is appropriate. The diaphragmatic contour is smooth and costophrenic angles are sharp. No pleural effusions are identified. The bones are unremarkable. Impression: No acute findings
== END 2017-10-14 21:10 | disposition short-term general hospital (02) ==
LOC: EDBD 13:32 → EMR 14:47
DX: R10.11 Right upper quadrant pain (principal); E87.6 Hypokalemia; I10 Essential (primary) hypertension; Z85.3 Personal history of malignant neoplasm of breast
CPT/HCPCS: 36415; 71045; 74177; 80053; 81003; 83690; 84484; 85025; 85610; 85730; 86850; 86900; 86901; 93005; 99284; J0360; J2270; J2405; J3480; Q9967; S0028; J8499

== ENCOUNTER 2017-11-17 09:30 | Emergency (ER) | payer MEDICAID, MEDICARE, OTHER ==
[~2017-11-17] VITALS: Ht 167.6 cm; Wt 63.5 kg
[~2017-11-17 09:30] MED LIST changes: +ACETAMINOPHEN-1 EAC2 ORAL; +BYSTOLIC5 MG ORAL; +VALIUM2 MG ORAL
--- NOTE | 2017-11-17 10:24 | Emergency Room Report ---
History of Present Illness General Chief Complaint: Abdominal Pain Source: Patient Present Illness HPI Patient is a 66-year-old female brought in by EMS for increased abdominal discomfort. Patient prior history of liver cancer. She reports having previously been vomiting as well as having diarrhea. She reports having increased pain to the left upper abdomen. Patient denies any fever. She reports having increased generalized weakness. She presented prior history of hypokalemia. She states she's not been able to eat at all at she does have an appetite. The patient had recent hospitalization which showed evidence of metastases Allergies: Coded Allergies: No Known Allergies (Unverified , 12/20/16) NKA Patient History Past Medical History: see triage record Reviewed Nursing Documentation: PMH: Agreed; PSxH: Agreed Nursing Documentation-PMH Past Medical History: No History, Except For Hx Cardiac Problems: Yes Hx Hypertension: Yes Hx Pacemaker: No Hx Asthma: No - Bronchitis Hx COPD: No Hx Cancer: Yes - liver Hx Gastrointestinal Problems: No Hx Neurological Problems: No Hx Seizures: Yes Review of Systems All Other Systems: negative except mentioned in HPI Physical Exam Vital Signs Date Time Temp Pulse Resp B/P (MAP) Pulse Ox O2 Delivery O2 Flow Rate FiO2 11/17/17 09:26 97.9 90 18 123/66 99 Room Air 97.9 Sp02 EP Interpretation: reviewed, normal General Appearance: normal inspection, well appearing, no apparent distress, alert, GCS 15, Chronically Ill Head: atraumatic ENT: normal ENT inspection, hearing grossly normal, normal voice Neck: normal inspection, full range of motion, supple, no bony tend Respiratory: normal inspection, lungs clear, normal breath sounds, no respiratory distress, no retraction, no wheezing Cardiovascular #1: regular rate, rhythm, no edema Gastrointestinal: normal inspection, normal bowel sounds, non tender, soft, no guarding, no hernia Genitourinary: no CVA tenderness Musculoskeletal: normal inspection, back normal, normal range of motion Neurologic: normal inspection, alert, oriented x3, responsive, production painter III-XII nml as tested, speech normal Psychiatric: normal inspection, judgement/insight normal, mood/affect normal Skin: no rash, other - discoloration to extremities Medical Decision Making Diagnostic Impression: Primary Impression: Abdominal pain Additional Impressions: acute exacerbation of chronic pain Pancreatitis ER Course Patient presented for abdominal pain. Differential diagnoses included ischemic bowel, appendicitis, perforated viscus, abdominal aortic aneurysm, inferior myocardial infarction, viral gastroenteritis Because of complexity of patient's case laboratory testing and imaging studies were ordered. The patient noted have increased abdominal discomfort as well as vomiting. The CT imaging of the abdomen pelvis was noted patient's recent imaging. Prior CT showed evidence of large metastatic lesion in the right liver. The patient is given IV pain medications as well as IV fluids. The patient was discussed with Dr. Somers for transfer to [facility] who agreed to accept the patient. Dr. Somers stated the patient will likely be admitted Dr. Vergara service instead of his. Labs Test 11/17/17 10:30 11/17/17 11:55 White Blood Count 9.0 K/UL (4.8-10.8) Red Blood Count 4.04 M/UL (4.20-5.40) Hemoglobin 10.7 G/DL (12.0-16.0) Hematocrit 34.9 % (37.0-47.0) Mean Corpuscular Volume 86 FL (80-99) Mean Corpuscular Hemoglobin 26.4 PG (27.0-31.0) Mean Corpuscular Hemoglobin Concent 30.6 G/DL (32.0-36.0) Red Cell Distribution Width 15.5 % (11.6-14.8) Platelet Count 306 K/UL (150-450) Mean Platelet Volume 6.6 FL (6.5-10.1) Neutrophils (%) (Auto) 84.6 % (45.0-75.0) Lymphocytes (%) (Auto) 9.0 % (20.0-45.0) Monocytes (%) (Auto) 4.8 % (1.0-10.0) Eosinophils (%) (Auto) 0.9 % (0.0-3.0) Basophils (%) (Auto) 0.7 % (0.0-2.0) Prothrombin Time 11.4 SEC (9.30-11.50) Prothromb Time International Ratio 1.1 (0.9-1.1) Activated Partial Thromboplast Time 24 SEC (23-33) Sodium Level 140 MMOL/L (136-145) Potassium Level 3.1 MMOL/L (3.5-5.1) Chloride Level 109 MMOL/L (98-107) Carbon Dioxide Level 20 MMOL/L (21-32) Anion Gap 11 mmol/L (5-15) Blood Urea Nitrogen 8 mg/dL (7-18) Creatinine 1.0 MG/DL (0.55-1.30) Estimat Glomerular Filtration Rate > 60 mL/min (>60) Glucose Level 120 MG/DL (74-106) Calcium Level 9.4 MG/DL (8.5-10.1) Total Bilirubin 0.6 MG/DL (0.2-1.0) Aspartate Amino Transf (AST/SGOT) 110 U/L (15-37) Alanine Aminotransferase (ALT/SGPT) 18 U/L (12-78) Alkaline Phosphatase 238 U/L (46-116) Troponin I 0.000 ng/mL (0.000-0.056) Total Protein 8.2 G/DL (6.4-8.2) Albumin 2.8 G/DL (3.4-5.0) Globulin 5.4 g/dL Albumin/Globulin Ratio 0.5 (1.0-2.7) Lipase 486 U/L (73-393) Last Vital Signs Date Time Temp Pulse Resp B/P (MAP) Pulse Ox O2 Delivery O2 Flow Rate FiO2 11/17/17 09:26 97.9 90 18 123/66 99 Room Air 97.9 Status: unchanged Disposition: XFER [facility] Condition: Serious Maxim Katz MD Nov 17, 2017 10:24
[2017-11-17] MEDS ORDERED: Morphine Sulfate 4mg/ml Inj (IV USE ONLY) IVP ONE ×2 (10:30→11:45)
[2017-11-17 10:55] VITALS: BP 165/65
[2017-11-17 11:11] LABS: BASOPHILS % (AUTO) 0.7 % (0.0-2.0); EOSINOPHILS % (AUTO) 0.9 % (0.0-3.0); HEMATOCRIT 34.9 % (37.0-47.0); HEMOGLOBIN 10.7 G/DL (12.0-16.0); MEAN CORPUSCULAR VOLUME 86 FL (80-99); MONOCYTES % (AUTO) 4.8 % (1.0-10.0); NEUTROPHILS % (AUTO) 84.6 % (45.0-75.0); PLATELET COUNT 306 K/UL (150-450); RED BLOOD COUNT 4.04 M/UL (4.20-5.40); RED CELL DISTRIBUTION WIDTH 15.5 % (11.6-14.8)
[2017-11-17 11:16] LABS: INR 1.1 (0.9-1.1)
[2017-11-17 11:17] LABS: ANION GAP 11 mmol/L (5-15); BLOOD UREA NITROGEN 8 mg/dL (7-18); CALCIUM 9.4 MG/DL (8.5-10.1); CARBON DIOXIDE 20 MMOL/L (21-32); CHLORIDE 109 MMOL/L (98-107); POTASSIUM 3.1 MMOL/L (3.5-5.1); SODIUM 140 MMOL/L (136-145)
[2017-11-17 11:21] LABS: ALANINE AMINOTRANSFERASE 18 U/L (12-78); ALBUMIN 2.8 G/DL (3.4-5.0); ALBUMIN/GLOBULIN RATIO 0.5 (1.0-2.7); ALKALINE PHOSPHATASE 238 U/L (46-116); ASPARTATE AMINO TRANSFERASE 110 U/L (15-37); BILIRUBIN,TOTAL 0.6 MG/DL (0.2-1.0)
[2017-11-17 12:08] VITALS: BP 147/62
[2017-11-17 12:52] LABS: APPEARANCE,URINE SLIGHTLY CLOUDY; BILIRUBIN, URINE NEGATIVE (NEGATIVE); GLUCOSE, URINE (UA) NEGATIVE (NEGATIVE); KETONES,URINE 2+ (NEGATIVE); LEUKOCYTE ESTERASE ,URINE 3+ (NEGATIVE); NITRITE,URINE POSITIVE (NEGATIVE); PH,URINE 7 (4.5-8.0); PROTEIN,URINE 2+ (NEGATIVE); UROBILINOGEN,URINE 1 MG/DL (0.0-1.0)
[2017-11-17 12:54] LABS: COLOR,URINE YELLOW
[2017-11-17 14:06] VITALS: BP 136/68
== END 2017-11-17 13:00 | disposition short-term general hospital (02) ==
LOC: EDBD 09:30 → EMR 10:30
DX: K85.90 Acute pancreatitis without necrosis or infection, unspecified (principal); I10 Essential (primary) hypertension; Z85.05 Personal history of malignant neoplasm of liver
CPT/HCPCS: 36415; 80053; 81003; 83690; 84484; 85025; 85610; 85730; 87086; 87181; 96374; 96375; 96376; 99284; J2270; J2405

== ENCOUNTER 2017-12-25 23:04 | Emergency (ER) | payer OTHER ==
[~2017-12-25] VITALS: Ht 167.6 cm; Wt 64.9 kg
[2017-12-25] MEDS ORDERED: Morphine Sulfate 4mg/ml Inj (IV USE ONLY) IVP ONE (23:30)
[2017-12-25 23:36] LABS: BASOPHILS % (AUTO) 0.6 % (0.0-2.0); EOSINOPHILS % (AUTO) 1.2 % (0.0-3.0); HEMOGLOBIN 8.6 G/DL (12.0-16.0); LYMPHOCYTES % (AUTO) 9.8 % (20.0-45.0); MEAN CORPUSCULAR VOLUME 82 FL (80-99); MONOCYTES % (AUTO) 9.3 % (1.0-10.0); NEUTROPHILS % (AUTO) 79.1 % (45.0-75.0); PLATELET COUNT 322 K/UL (150-450); RED BLOOD COUNT 3.28 M/UL (4.20-5.40)
[2017-12-25 23:48] LABS: INR 1.2 (0.9-1.1)
[2017-12-25 23:52] LABS: ALANINE AMINOTRANSFERASE 20 U/L (12-78); ALBUMIN 2.1 G/DL (3.4-5.0); ALBUMIN/GLOBULIN RATIO 0.4 (1.0-2.7); ALKALINE PHOSPHATASE 204 U/L (46-116); ANION GAP 10 mmol/L (5-15); ASPARTATE AMINO TRANSFERASE 121 U/L (15-37); BLOOD UREA NITROGEN 7 mg/dL (7-18); CALCIUM 9.1 MG/DL (8.5-10.1); CARBON DIOXIDE 20 MMOL/L (21-32); CHLORIDE 107 MMOL/L (98-107); CREATININE 0.7 MG/DL (0.55-1.30); SODIUM 138 MMOL/L (136-145)
[2017-12-25 23:53] LABS: POTASSIUM 2.5 MMOL/L (3.5-5.1)
--- NOTE | 2017-12-26 00:11 | Emergency Room Report ---
History of Present Illness General Chief Complaint: Abdominal Pain Source: Patient Present Illness HPI This is a 57-year-old female with a history of metastatic breast cancer to liver and bone. She is undergoing chemotherapy. She presents with chief point abdominal pain. His been ongoing for about a week. Worse in the last day. Has episode nausea but mostly diarrhea. Nonbloody and nonbilious. Out of her pain medication. Pain is 9 out of 10. Nothing made it better. Any palpation made it worse. No other complaint. No fever. Has chills. No urinary complaint. Allergies: Coded Allergies: No Known Allergies (Unverified , 12/25/17) Patient History Past Medical History: see triage record, old chart reviewed Past Surgical History: other Pertinent Family History: none Social History: Denies: smoking Now: No Immunizations: other Reviewed Nursing Documentation: PMH: Agreed; PSxH: Agreed Nursing Documentation-PMH Past Medical History: No History, Except For Review of Systems Eye: Denies: eye pain, blurred vision ENT: Denies: ear pain, nose congestion, throat swelling Respiratory: Denies: cough, shortness of breath Cardiovascular: Denies: chest pain, palpitations Gastrointestinal: Reports: abdominal pain, diarrhea, nausea, vomiting Musculoskeletal: Denies: back pain, joint pain Skin: Denies: rash Neurological: Denies: headache, numbness Endocrine: Denies: increased thirst, increased urine Hematologic/Lymphatic: Denies: easy bruising All Other Systems: negative except mentioned in HPI Physical Exam Vital Signs Date Time Temp Pulse Resp B/P (MAP) Pulse Ox O2 Delivery O2 Flow Rate FiO2 12/25/17 22:59 98.4 90 18 128/86 100 Room Air 98.4 vitals normal Sp02 EP Interpretation: reviewed, normal General Appearance: no apparent distress, alert, cachetic, Chronically Ill Head: normocephalic, atraumatic Eyes: bilateral eye PERRL, bilateral eye EOMI ENT: hearing grossly normal, normal pharynx Neck: full range of motion, supple, no meningismus Respiratory: chest non-tender, lungs clear, normal breath sounds Cardiovascular #1: regular rate, rhythm, no murmur Gastrointestinal: no mass, no organomegaly, no bruit, abnormal bowel sounds - hyperactive, distended - ascites but not tense, tenderness - diffuse tenderness Musculoskeletal: back normal, gait/station normal, normal range of motion Psychiatric: mood/affect normal Skin: warm/dry Medical Decision Making Diagnostic Impression: Primary Impression: Abdominal pain Qualified Codes: R10.84 - Generalized abdominal pain Additional Impressions: Hypokalemia Anemia, chronic disease UTI (urinary tract infection) Qualified Codes: N30.00 - Acute cystitis without hematuria ER Course Patient with abdominal pain. Most likely secondary to her metastatic cancer. She is out of her pain medication. Pain better now. No evidence of an acute abdomen. No evidence of any obstruction. We'll discharge home with antibiotics and pain medication. Lab Results Impression labs with anemia CT/MRI/US Diagnostic Results CT/MRI/US Diagnostic Results : Imaging Test Ordered: CT abdomen and pelvis Impression Read by radiologist. Metastatic liver disease. Liver is cirrhotic. Moderate ascites. No obstruction. Last Vital Signs Date Time Temp Pulse Resp B/P (MAP) Pulse Ox O2 Delivery O2 Flow Rate FiO2 12/25/17 23:48 98.4 12/25/17 22:59 90 18 128/86 100 Room Air Status: improved Disposition: HOME, SELF-CARE Condition: Stable Scripts Levofloxacin* (LEVAQUIN*) 500 Mg Tablet 500 MG ORAL DAILY, #7 TAB Prov: MAYA DOAN M.D. 12/26/17 Potassium Chloride* (K-DUR*) 10 Meq Capsule.er 10 MEQ ORAL DAILY, #14 TAB 0 Refills Prov: MAYA DOAN M.D. 12/26/17 Hydrocodone/Acetaminophen 5-325* (HYDROCODONE/ACETAMINOPHEN 5-325*) 1 Each Tablet 1 TAB ORAL Q6H PRN for For Pain, #30 TAB 0 Refills Prov: MAYA DOAN M.D. 12/26/17 Referrals: [facility],REFERRING (PCP) Patient Instructions: Abdominal Pain, Adult Additional Instructions: Follow-up with your DrCharlene in 2-5 days. Return if symptom worsen. MAYA DOAN M.D. Dec 26, 2017 00:11
[2017-12-26 00:30] VITALS: BP 134/48
[2017-12-26] MEDS ORDERED: Morphine Sulfate 4mg/ml Inj (IV USE ONLY) IVP ONE (00:30)
[2017-12-26 00:41] LABS: APPEARANCE,URINE CLEAR; BILIRUBIN, URINE NEGATIVE (NEGATIVE); GLUCOSE, URINE (UA) NEGATIVE (NEGATIVE); KETONES,URINE 2+ (NEGATIVE); LEUKOCYTE ESTERASE ,URINE 1+ (NEGATIVE); NITRITE,URINE NEGATIVE (NEGATIVE); PH,URINE 7 (4.5-8.0); PROTEIN,URINE 1+ (NEGATIVE); UROBILINOGEN,URINE NORMAL MG/DL (0.0-1.0)
[2017-12-26 00:43] LABS: COLOR,URINE YELLOW
[2017-12-26] MEDS ORDERED: cefTRIAXone 1 GM in NS 55 ML IVPB ONE (01:15)
[2017-12-26] MEDS ORDERED: LEVAQUIN500 MG ORAL (01:22)
[2017-12-26] MEDS ORDERED: POTASSIUM CHLO10 MEQ ORAL (01:22)
[2017-12-26] MEDS ORDERED: HYDROCODON-ACE1 EA15 ORAL (01:22)
[2017-12-26 01:38] VITALS: BP 142/60
[2017-12-26 01:57] VITALS: BP 142/60
--- NOTE | 2017-12-26 08:48 | Diagnostic Imaging Report ---
Indication: Abdominal pain for 3 days, history of metastatic breast cancer Technique: Spiral acquisitions obtained through the abdomen and pelvis. No oral contrast utilized, per emergency room physician request No IV contrast utilized, per referring physician request.. Multiplanar reconstructions were generated. Total dose length product 588.52 mGycm. CTDIvol(s) 10.75 mGy. Dose reduction achieved using automated exposure control Comparison: None Findings: There is colonic diverticulosis. There is equivocal mild wall thickening of the sigmoid colon. The appendix is normal. There is a moderate amount of ascites fluid. There is wall thickening of the distal esophagus. The stomach and duodenum are unremarkable. No small bowel distention. No free or loculated intraperitoneal gas. There is evidence of prior anterior abdominal wall surgery. Lack of IV contrast limits assessment of solid organs. The liver is filled with innumerable low-attenuation lesions measuring up to several centimeters in size. It demonstrates mild surface nodularity The gallbladder contains dense material but no definite stones. No biliary ductal dilatation. The pancreas is unremarkable. However, there is considerable peripancreatic adenopathy, with peripancreatic nodes measuring up to 2 cm long axis dimension The spleen is upper limits normal in size, otherwise unremarkable. Nodules within the splenic hilar region are slightly irregular in shape, more likely represent adenopathy than accessory splenules. The kidneys demonstrate a small cyst in the left upper pole, as well as bilateral subcentimeter low-attenuation lesions which are too small to characterize. No retroperitoneal mass or adenopathy. No pelvic mass or adenopathy. Uterus contains multiple calcifications, consistent with old degenerated fibroids. The bones demonstrate degenerative spondylosis changes. There is mild generalized sclerosis of the lumbar spine but no definite focal osteoblastic lesions. Questionable osteolytic lesions are seen in the pelvis and left greater trochanter. There are degenerative changes of both hips. Small nodules are seen at the right lung base. Trace pleural fluid is seen bilaterally. There is a pericardial effusion. There is asymmetry to the breasts, and a surgical clip in the left breast Impression: Equivocal mild sigmoid wall thickening, if real could indicate colitis, otherwise nonspecific as regards etiology Moderate ascites fluid Distal esophageal wall thickening, could indicate esophagitis Multiple liver lesions, consistent with known clinical history of metastatic breast carcinoma Mild hepatic surface nodularity, could indicate cirrhotic changes Peripancreatic and possibly splenic hilar lymphadenopathy Evidence prior left breast surgery, most likely metastatic Right basilar tiny lung nodules, nonspecific Trace bilateral pleural effusions Small pericardial effusion Colonic diverticulosis Left upper pole renal cysts. Subcentimeter low-attenuation renal lesions, too small to characterize, most likely benign simple cysts. No further follow-up necessary Generalized lumbar osteosclerosis without discrete osteoblastic lesions, could be on the basis of metastatic changes Questionable other osteolytic lesions in the pelvis and left greater trochanter, if real could indicate metastatic deposits Other findings as noted, including degenerative changes of both hips, degenerative spondylosis, degenerated uterine fibroids This agrees with the preliminary interpretation provided overnight by [facility]. The CT scanner at [facility] is accredited by the [employer] and the scans are performed using protocols designed to limit radiation exposure to as low as reasonably achievable to attain images of sufficient resolution adequate for diagnostic evaluation.
== END 2017-12-26 01:58 | disposition home or self-care (01) ==
LOC: EDBD 23:04 → MERGE 23:18 → EMR 23:18
DX: R10.84 Generalized abdominal pain (principal); N39.0 Urinary tract infection, site not specified; E87.6 Hypokalemia; D64.9 Anemia, unspecified; R18.8 Other ascites; C78.7 Secondary malignant neoplasm of liver and intrahepatic bile duct; C79.51 Secondary malignant neoplasm of bone; Z85.3 Personal history of malignant neoplasm of breast; Z79.899 Other long term (current) drug therapy
CPT/HCPCS: 36415; 74176; 80053; 81003; 83690; 85025; 85610; 85730; 87086; 96365; 96375; 96376; 99284; J0696; J2270; J2405; J8499

== ENCOUNTER 2018-02-08 23:17 | Inpatient (IN) | payer MEDICAID, MEDICARE, OTHER ==
[~2018-02-08] VITALS: Ht 170.2 cm; Wt 57.2 kg
[~2018-02-08 23:17] MED LIST changes: +HYDROCODON-ACE1 EA15 ORAL; +LEVAQUIN500 MG ORAL; +POTASSIUM CHLO10 MEQ ORAL
[2018-02-08 23:35] VITALS: BP 114/58
[2018-02-08 23:54] LABS: APPEARANCE,URINE CLOUDY; BILIRUBIN, URINE NEGATIVE (NEGATIVE); GLUCOSE, URINE (UA) NEGATIVE (NEGATIVE); KETONES,URINE 1+ (NEGATIVE); LEUKOCYTE ESTERASE ,URINE 3+ (NEGATIVE); NITRITE,URINE NEGATIVE (NEGATIVE); PH,URINE 6 (4.5-8.0); PROTEIN,URINE 2+ (NEGATIVE); UROBILINOGEN,URINE 1 MG/DL (0.0-1.0)
[2018-02-08 23:55] LABS: COLOR,URINE YELLOW
[2018-02-08 23:57] LABS: HEMATOCRIT 25.2 % (37.0-47.0); HEMOGLOBIN 7.9 G/DL (12.0-16.0); MEAN CORPUSCULAR VOLUME 89 FL (80-99); PLATELET COUNT 165 K/UL (150-450); RED BLOOD COUNT 2.83 M/UL (4.20-5.40); RED CELL DISTRIBUTION WIDTH 23.9 % (11.6-14.8); WHITE BLOOD COUNT 18.6 K/UL (4.8-10.8)
[2018-02-09] VITALS (25 sets, daily range): BP systolic 59–132; BP diastolic 26–85
[2018-02-09 00:04] LABS: AMMONIA 155 umol/L (11-32); ANION GAP 15 mmol/L (5-15); BLOOD UREA NITROGEN 34 mg/dL (7-18); CALCIUM 8.4 MG/DL (8.5-10.1); CARBON DIOXIDE 17 MMOL/L (21-32); CHLORIDE 105 MMOL/L (98-107); CREATININE 2.6 MG/DL (0.55-1.30); POTASSIUM 5.4 MMOL/L (3.5-5.1); SODIUM 137 MMOL/L (136-145)
[2018-02-09 00:06] LABS: INR 1.8 (0.9-1.1)
[2018-02-09 00:17] LABS: ALANINE AMINOTRANSFERASE 53 U/L (12-78); ALBUMIN 1.8 G/DL (3.4-5.0); ALBUMIN/GLOBULIN RATIO 0.4 (1.0-2.7); ALKALINE PHOSPHATASE 14 U/L (46-116); ASPARTATE AMINO TRANSFERASE 588 U/L (15-37); CREATINE KINASE 203 U/L (26-308)
[2018-02-09 00:18] LABS: BILIRUBIN,DIRECT 1.4 MG/DL (0.0-0.3)
[2018-02-09] MEDS ORDERED: UNOBMED (01:23)
[2018-02-09] MEDS ORDERED: Piperacillin/Tazobactam 3.375 GM in NS 110 ML IVPB ONE (02:00)
--- NOTE | 2018-02-09 02:31 | Diagnostic Imaging Report ---
EXAM: XR Abdomen Complete, 2 or More Views. CLINICAL HISTORY: Altered mental status TECHNIQUE: Frontal view of the abdomen/pelvis with upright view of the abdomen. COMPARISON: No relevant prior studies available. FINDINGS: Free air: No gross pneumoperitoneum Gastrointestinal tract: Bowel gas pattern is nonobstructive. There is generalized paucity of bowel gas. Bones: No acute osseous abnormality. IMPRESSION: Nonobstructive bowel gas pattern..
--- NOTE | 2018-02-09 03:06 | Emergency Room Report ---
History of Present Illness General Chief Complaint: Altered Level of Consciousness Source: Medical Record, EMS Present Illness HPI Patient allegedly brought in from home for altered mentation. Allegedly she is in hospice care. Paramedics found Accu-Chek that was normal. Patient obtunded and not able to give history. Patient seen 01/27 with chest pain. CTA neg. Transferred to [facility]. H/O metastatic breast CA with liver mets. H/O ascites. Allergies: Coded Allergies: No Known Allergies (Unverified , 12/20/16) NKA UNABLE TO ASSESS (Unverified , 02/08/18) patient is unresponsive Patient History Limited by: medical condition Past Medical History: see triage record, old chart reviewed Last Menstrual Period: unk Now: No Reviewed Nursing Documentation: PMH: Agreed; PSxH: Agreed Nursing Documentation-PMH Past Medical History: No History, Except For Hx Cardiac Problems: Yes - UNK Hx Hypertension: Yes Hx Pacemaker: No - BACK PAIN Hx Asthma: No - Bronchitis Hx COPD: No Hx Cancer: Yes - liver cancer, breast cancer, mastectomy Hx Gastrointestinal Problems: No Hx Neurological Problems: No Hx Seizures: Yes Physical Exam Vital Signs Date Time Temp Pulse Resp B/P (MAP) Pulse Ox O2 Delivery O2 Flow Rate FiO2 02/08/18 23:10 99.1 101 12 110/72 99 Room Air Procedures Critical Care Time Critical Care Time Total Critical Care Time: 45 min bedside evaluation and treatment excludes procedures (EKG). Reason for critical care: ALOC, sepsis, attempt to determine level of care Possible complications: hypotension, hypertension, RI, shock, arrhythmias, metabolic acidosis, end organ damage, respiratory failure. Interventions: Sepsis resuscitation, antibiotics, contact [facility] for code determination Course: Patient with ALOC. Urinary source of infection. Elevated ammonia. Attempt to determine code status. Discussed with [facility] staff. Tox + opiates and benzos. Narcan administered. Transfer to ICU from floor as unable to determine code status. Consultations: nursing staff, EMS, [facility], RT Performed by: Dr. Flores Tolerated well condition = critical Medical Decision Making Diagnostic Impression: Primary Impression: Stupor Additional Impressions: Sepsis Qualified Codes: A41.9 - Sepsis, unspecified organism Metastatic breast cancer Liver metastases Hepatic encephalopathy Renal insufficiency ER Course Patient with ALOC and h/o metastatic breast cancer. DDX; sepsis, hepatic encephalopathy, SBP, UTI, pneumonia, drug ingestion amongst others. Patient severely obtunded, but attempt to determine code status as allegedly on Hospice care. Evaluation with EKG, CXR, Abd films, labs. Fluid resuscitation, antibiotics indicated. ABG for assessment of resp status. EKG without injury. CXR no infiltrates. Abd wit ascites. Labs with elevated ammonia, WBC, renal insufficiency, pyuria. Antibiotics started. ABG venous. Attempting to determine level of care. Admit telemetry Dr. Rubio. Social service consult for help with level of care and autistic son. Tox ordered. + benzos and opiates Contact [facility]. Apparently full code and d/c to home with home health care - no indication of Hospice. Call to cousin listed on registration. Message left to call. Narcan administered on floor with improved resp rate. O2 sats and VS had maintained. Due to level of obtundation, patient transferred to ICU. Laboratory Tests Test 02/08/18 23:14 02/08/18 23:25 02/08/18 23:45 02/09/18 01:20 Arterial Blood pH 7.395 (7.350-7.450) Arterial Blood Partial Pressure CO2 23.0 mmHg (35.0-45.0) *L Arterial Blood Partial Pressure O2 47.0 mmHg (75.0-100.0) Arterial Blood HCO3 13.8 mmol/L (22.0-26.0) *L Arterial Blood Oxygen Saturation 78.2 % (95-100) *L Arterial Blood Base Excess -10.0 (-2-2) *L Giovanni Test Positive White Blood Count 18.6 K/UL (4.8-10.8) H Red Blood Count 2.83 M/UL (4.20-5.40) L Hemoglobin 7.9 G/DL (12.0-16.0) L Hematocrit 25.2 % (37.0-47.0) L Mean Corpuscular Volume 89 FL (80-99) Mean Corpuscular Hemoglobin 28.0 PG (27.0-31.0) Mean Corpuscular Hemoglobin Concent 31.5 G/DL (32.0-36.0) L Red Cell Distribution Width 23.9 % (11.6-14.8) H Platelet Count 165 K/UL (150-450) Mean Platelet Volume 6.3 FL (6.5-10.1) L Neutrophils (%) (Auto) % (45.0-75.0) Lymphocytes (%) (Auto) % (20.0-45.0) Monocytes (%) (Auto) % (1.0-10.0) Eosinophils (%) (Auto) % (0.0-3.0) Basophils (%) (Auto) % (0.0-2.0) Differential Total Cells Counted 100 Neutrophils % (Manual) 92 % (45-75) H Lymphocytes % (Manual) 4 % (20-45) L Monocytes % (Manual) 4 % (1-10) Eosinophils % (Manual) 0 % (0-3) Basophils % (Manual) 0 % (0-2) Band Neutrophils 0 % (0-8) Platelet Estimate Adequate Platelet Morphology Normal Hypochromasia 1+ Anisocytosis 1+ Target Cells 1+ Prothrombin Time 18.7 SEC (9.30-11.50) H Prothrombin Time INR 1.8 (0.9-1.1) H PTT 32 SEC (23-33) Sodium Level 137 MMOL/L (136-145) Potassium Level 5.4 MMOL/L (3.5-5.1) H Chloride Level 105 MMOL/L (98-107) Carbon Dioxide Level 17 MMOL/L (21-32) L Anion Gap 15 mmol/L (5-15) Blood Urea Nitrogen 34 mg/dL (7-18) H Creatinine 2.6 MG/DL (0.55-1.30) H Estimate Glomerular Filtration Rate 22.3 mL/min (>60) Glucose Level 86 MG/DL (74-106) Lactic Acid Level 3.90 mmol/L (0.4-2.0) H 3.80 mmol/L (0.66-2.22) H Calcium Level 8.4 MG/DL (8.5-10.1) L Total Bilirubin 2.0 MG/DL (0.2-1.0) H Direct Bilirubin 1.4 MG/DL (0.0-0.3) H Aspartate Amino Transferase (AST) 588 U/L (15-37) H Alanine Aminotransferase (ALT) 53 U/L (12-78) Alkaline Phosphatase 14 U/L (46-116) L Ammonia 155 umol/L (11-32) H Total Creatine Kinase 203 U/L (26-308) Troponin I 0.000 ng/mL (0.000-0.056) Pro-B-Type Natriuretic Peptide 1858 pg/mL (0-125) H Total Protein 6.6 G/DL (6.4-8.2) Albumin 1.8 G/DL (3.4-5.0) L Globulin 4.8 g/dL Albumin/Globulin Ratio 0.4 (1.0-2.7) L Lipase 128 U/L (73-393) Urine Color Yellow Urine Appearance Cloudy Urine pH 6 (4.5-8.0) Urine Specific [place] 1.010 (1.005-1.035) Urine Protein 2+ (NEGATIVE) H Urine Glucose (UA) Negative (NEGATIVE) Urine Ketones 1+ (NEGATIVE) H Urine Blood 4+ (NEGATIVE) H Urine Nitrite Negative (NEGATIVE) Urine Bilirubin Negative (NEGATIVE) Urine Urobilinogen 1 MG/DL (0.0-1.0) H Urine Leukocyte Esterase 3+ (NEGATIVE) H Urine RBC 15-20 /HPF (0 - 2) H Urine WBC 60-80 /HPF (0 - 2) H Urine Squamous Epithelial Cells Moderate /LPF (NONE/OCC) H Urine Bacteria Many /HPF (NONE) H Test 02/09/18 03:19 Urine Opiates Screen Positive (NEGATIVE) H Urine Barbiturates Screen Negative (NEGATIVE) Phencyclidine (PCP) Screen Negative (NEGATIVE) Urine Amphetamines Screen Negative (NEGATIVE) Urine Benzodiazepines Screen Positive (NEGATIVE) H Urine Cocaine Screen Negative (NEGATIVE) Urine Marijuana (THC) Screen Negative (NEGATIVE) EKG Diagnostic Results Rate: normal Rhythm: NSR ST Segments: no acute changes - LAD Rhythm Strip Diag. Results EP Interpretation: yes Rhythm: NSR, no PVC's, no ectopy Chest X-Ray Diagnostic Results Chest X-Ray Diagnostic Results : Chest X-Ray Ordered: Yes # of Views/Limited/Complete: 1 View Indication: Other Interpretation: no consolidation, no effusion, no pneumothorax, other - acsites Impression: Other Electronically Signed by: Eder Flores MD Other X-Ray Diagnostic Results Other X-Ray Diagnostic Results : X-Ray ordered: abd # of Views/Limited Vs Complete: 2 View Indication: Swelling EP Interpretation: Yes Interpretation: nonspecific bowel gas, no sbo, other - ascites Impression: Other Electronically Signed by: Eder Flores MD Last Vital Signs Date Time Temp Pulse Resp B/P (MAP) Pulse Ox O2 Delivery O2 Flow Rate FiO2 02/09/18 02:30 96.8 87 12 102/50 99 Room Air Status: improved Disposition: ADMITTED INPATIENT Condition: Critical Referrals: [facility]ERR[facility] (PCP) Eder Flores MD Feb 09, 2018 03:06
[2018-02-09] MEDS ORDERED: Naloxone 1mg/ml 2ml ONE (03:28)
[2018-02-09] MEDS ORDERED: Naloxone 1mg/ml 2ml IVP ONE (03:30)
[2018-02-09] MEDS ORDERED: Naloxone 2 MG in D5W 500ml 498 ML IV SCH (03:30)
[2018-02-09] MEDS ORDERED: Sodium Bicarbonate 50ml Carp IV SCH ×2 (04:45)
[2018-02-09] MEDS ORDERED: Sodium Bicarbonate 150 ML in D5W 1000ml 1,000 ML IV SCH (05:00)
[2018-02-09] MEDS ORDERED: Sodium Bicarbonate 8.4% 50ml Inj ONE (05:15)
--- NOTE | 2018-02-09 05:24 | Emergency Room Report ---
Physical Exam Called to intubate patient. Apparent desaturation and tachypnea. Admitted to tele, then transferred to ICU at my request as unable to document code status. Last 24 Hour Vital Signs Date Time Temp Pulse Resp B/P (MAP) Pulse Ox O2 Delivery O2 Flow Rate FiO2 02/09/18 03:45 96.8 81 12 102/50 99 Room Air 87 02/09/18 02:30 96.8 87 12 102/50 99 Room Air 02/09/18 01:30 96.8 81 12 106/56 99 Room Air 02/09/18 00:30 96.8 91 17 96/49 100 Room Air 02/08/18 23:35 96.8 89 15 114/58 100 Room Air 02/08/18 23:30 101 12 Room Air 02/08/18 23:10 99.1 101 12 110/72 99 Room Air Sp02 EP Interpretation: reviewed, abnormal - interpreted as low by me (87%) General Appearance: moderate distress, Stupor Head: normocephalic, atraumatic Eyes: bilateral eye conjunctivae pale, bilateral eye scleral icterus ENT: other - clenching teeth on tongue Neck: supple Respiratory: respiratory distress, decreased breath sounds Cardiovascular #1: regular rate, rhythm Gastrointestinal: non tender, distended, decreased bowel sounds Genitourinary: other - real Musculoskeletal: other - spider habitus Neurologic: other - unresponsive to painful stimuli Psychiatric: other - stupor Skin: cyanosis, jaundice Intubation Intubation : Consent: Emergent Intubation Method: orotracheal Tube Size (cm): 7.5 Medications: Versed Breath Sounds after Intubation: equal Intubation Complications: no complications Post Intubation Xray: Yes Attempts: One Patient Tolerated: Well Complications: None Progress Due to teeth clenching, versed 1 mg given. Medical Decision Making Diagnostic Impression: Primary Impression: Stupor Additional Impressions: Liver metastases Renal insufficiency Metastatic breast cancer Sepsis Qualified Codes: A41.9 - Sepsis, unspecified organism Hepatic encephalopathy ER Course Patient admitted with sepsis and hepatic encephalopathy with metastatic breast carcinoma. Several etiologies of resp distress. Resp rate had improved with Narcan. Now with resp alkalosis and hypoxia. Intubated with Versed 1 mg. BS bilat at 22 cm. CXR with ET OK, infiltrates patchy. Discussed with Dr. Rubio. Rhythm Strip Diag. Results EP Interpretation: yes Rhythm: no PVC's, no ectopy, other - ST Chest X-Ray Diagnostic Results Chest X-Ray Diagnostic Results : Chest X-Ray Ordered: Yes # of Views/Limited/Complete: 1 View Indication: Other Interpretation: no effusion, no pneumothorax, other - ET good, infiltrates Impression: Other Electronically Signed by: Electronically signed by Eder Flores MD Last Vital Signs Date Time Temp Pulse Resp B/P (MAP) Pulse Ox O2 Delivery O2 Flow Rate FiO2 02/09/18 03:45 96.8 81 12 102/50 99 Room Air 87 Status: improved Disposition: ADMITTED INPATIENT Condition: Critical Referrals: [facility] (PCP) Eder Flores MD Feb 09, 2018 05:24
[2018-02-09] MEDS ORDERED: Vancomycin 1250mg/D5W 250ml 250 ML IVPB SCH (05:30)
--- NOTE | 2018-02-09 06:05 | Diagnostic Imaging Report ---
EXAM: XR Chest, 1 View. CLINICAL HISTORY: S/P INTUB TECHNIQUE: Frontal view of the chest. COMPARISON: 01/27/18 FINDINGS: Lungs: Asymmetric volume loss within the right hemithorax again seen, with atelectasis or scarring in the right lower lobe. No diffuse interstitial abnormality. Pleural spaces: Probable right pleural effusion. No pneumothorax.. Heart: Unremarkable. Cardiac silhouette is within normal limits. Mediastinum: No mediastinal widening or shift. Endotracheal tube in place with tip approximately 3.2 cm above the jin. Bones: Unremarkable. No acute fracture. IMPRESSION: Endotracheal tube appropriately positioned approximately 3.2 cm above the jin. Right pleural effusion with right basilar atelectasis or scarring.
--- NOTE | 2018-02-09 06:45 | History and Physical Report ---
DATE OF ADMISSION: 02/09/2018 REASON FOR ADMISSION: 1. Acute kidney injury. 2. Acute encephalopathy due to hepatic failure. 3. Sepsis. HISTORY OF PRESENT ILLNESS: The patient is a 67-year-old female who presented to the emergency room for acute encephalopathy/altered mental status, brought in by EMS. EMS had informed the emergency room that the patient was at hospice care. This was approximately 2:30 in the morning. The patient presented to the telemetry floor. However, documentation of hospice could not be ascertained. The patient deteriorated respiratory borges and was immediately transferred to the intensive care unit at 4 a.m. I was then called to notify that the patient's O2 saturation was low. O2 saturations were done along with an ABG. I immediately called the emergency room for intubation. The patient at approximately 4:45 was intubated. I am currently at bedside for evaluation of the patient. She is now intubated on mechanical ventilation. PAST MEDICAL HISTORY: 1. Metastatic breast cancer with liver metastases. 2. Ascites. ALLERGIES: No known drug allergies. FAMILY HISTORY: Unobtainable. PAST SURGICAL HISTORY: Unobtainable. LABORATORY DATA: Dated 02/09/2018, ABG 7.469, pCO2 of 16, pO2 of 53, base excess of -11, and O2 saturation of 87. Sodium 137, potassium 5.4, chloride 105, bicarbonate 17, BUN 34, and creatinine 2.6. Lactic acid of 3.9. Ammonia level of 155. AST and ALT are 588 and 53. Positive for opioids and benzodiazepines. PHYSICAL EXAMINATION: VITAL SIGNS: Blood pressure 102/50, respiratory rate 35, pulse 108, and temperature 96.8. Mechanically ventilated. GENERAL: The patient intubated, encephalopathic, on mechanical ventilation. HEENT: Extraocular muscles are intact. No lymphadenopathy noted. CARDIOVASCULAR: S1 and S2. No rubs or gallops with tachycardia. PULMONARY: Clear to auscultation bilaterally with no rales, rhonchi, or wheezes. ABDOMEN: Distended. Very quiet bowel sounds. Difficult to ascertain fluid wave shift due to tension. EXTREMITIES: No edema. ASSESSMENT AND PLAN: 1. Septic shock with a white cell count of 19,000 and hemoglobin of 7.9. The patient has been started on broad-spectrum antibiotics, was given Zosyn and Levaquin in the emergency room in addition for gram further positive coverage will be given vancomycin. The patient's blood pressure is currently stable. Aggressive intravenous hydration with normal saline. Infectious Disease to tailor antibiotic therapy. 2. Acute kidney injury. Baseline creatinine not entirely clear. At this time, aggressively hydrate the patient and monitor her electrolytes. CT of the abdomen and pelvis are pending. 3. Abdominal distention. The patient has a history of breast cancer with liver metastases. CT of the abdomen and pelvis have been ordered. 4. Hepatic encephalopathy with elevated ammonia level, with a history of breast cancer with liver METS. Gastroenterology has been consulted along with general surgery to evaluate distended tense abdomen with decreased bowel sounds. 5. Respiratory failure. The patient has an ABG with a pH of 7.49. At this time, we will aggressively hydrate with normal saline. 6. Mild hyperkalemia. Potassium 5.4. The patient received 20 mg intravenous Lasix. At this time, the patient is critically ill with known metastatic breast cancer to the liver. Until we have full knowledge the patient was hospice and only comfort care and documentation to prove this, we will have to proceed very aggressively and treat the patient until such time. Andrea Taveras MD DR: ALESHA JOB#: [id number] CC: GIGI
[2018-02-09] MEDS ORDERED: Vancomycin 1gm/D5W 275ml IVPB ONE ×2 (08:00)
[2018-02-09] MEDS ORDERED: Lactulose 20gm/30ml UDC RECTAL SCH (09:00)
[2018-02-09] MEDS ORDERED: Enoxaparin 30mg Inj SUBQ SCH ×2 (09:00)
[2018-02-09] MEDS ORDERED: Phytonadione 10 MG in D5W 55 ML IVPB SCH (09:00)
--- NOTE | 2018-02-09 09:05 | Consultation ---
Consult Note Consult Note [id number] Job ID Greatly appreciate consultation Dionte Ferro MD Feb 09, 2018 09:05
--- NOTE | 2018-02-09 09:38 | Consultation ---
History of Present Illness General Date patient seen: Feb 09, 2018 Chief Complaint: Altered Level of Consciousness Reason for Consultation: abdominal distention Present Illness HPI 67 year old female with history of metastatic breast cancer on hospice care as per report presented with altered mental status. During hospitalization respiratory compromise requiring intubation. Noted to have distended abdomen on examination and recently with bloody BM. surgery called to evaluate. patient seen, chart reviewed, patient examined. currently unresponsive intubated in ICU. Allergies: Coded Allergies: No Known Allergies (Unverified , 12/20/16) NKA UNABLE TO ASSESS (Unverified , 02/08/18) patient is unresponsive Medication History Scheduled Amlodipine Besylate (Norvasc), 5 MG ORAL DAILY Levofloxacin* (Levaquin*), 500 MG ORAL DAILY Levothyroxine Sodium (Synthroid), 50 MCG ORAL DAILY@0630 Methocarbamol* (Robaxin-750*), 750 MG PO TID Nebivolol Hcl (Bystolic), 5 MG ORAL DAILY, (Reported) Potassium Chloride (Klor-Con M20), 20 MEQ ORAL DAILY, (Reported) Potassium Chloride* (K-Dur*), 10 MEQ ORAL DAILY Scheduled PRN Acetaminophen With Codeine (T#4) (Tylenol #4 Tab*), 1 TAB ORAL DAILY PRN for For Pain, (Reported) Diazepam* (Valium*), 2 MG ORAL EVERY 4-6 HOURS PRN for For Pain, (Reported) Hydrocodone/Acetaminophen 5-325* (Hydrocodone/Acetaminophen 5-325*), 1 TAB ORAL Q6H PRN for For Pain Tramadol Hcl* (Ultram*), 50 MG ORAL Q6H PRN for For Pain Miscellaneous Medications Unable to Obtain Medications (Unable To Obtain Meds), (Reported) Patient History Limited by: medical condition History Provided By: Medical Record, PMD Healthcare decision maker Resuscitation status Full Code Advanced Directive on File unk Past Medical/Surgical History Past Medical/Surgical History: (1) Joint pain of ankle and foot (2) Arthritis (3) Joint pain of ankle and foot (4) Back pain (5) Multiple contusions (6) Laceration of axilla, right (7) Cellulitis (8) Breast pain (9) Thumb fracture (10) Injury of upper extremity (11) Finger contusion (12) Low back pain (13) Chronic pain (14) Substance abuse (15) HTN (hypertension) (16) History of breast cancer (17) Hypokalemia (18) Abdominal pain (19) acute exacerbation of chronic pain (20) Back pain (21) acute lumbar strain (22) acute exacerbation of chronic pain (23) Altered level of consciousness (24) Sepsis (25) Hepatic encephalopathy (26) Stupor (27) Renal insufficiency (28) Liver metastases (29) Metastatic breast cancer Review of Systems ROS Narrative cannot obtain given medical condition Physical Exam General Appearance: no apparent distress Lines, tubes and drains: peripheral HEENT: normocephalic, atraumatic, mucous membranes moist Neck: normal inspection Respiratory/Chest: lungs clear, on vent Cardiovascular/Chest: tachycardia Abdomen: soft, hypoactive bowel sounds, distended Extremities: normal inspection Skin Exam: warm/dry Neurologic: unresponsiveness Last 24 Hour Vital Signs Date Time Temp Pulse Resp B/P (MAP) Pulse Ox O2 Delivery O2 Flow Rate FiO2 02/09/18 09:03 107 32 60 02/09/18 08:00 60 02/09/18 08:00 Endotracheal Tube 02/09/18 08:00 97.0 103 46 110/63 (79) 100 02/09/18 07:18 105 35 60 02/09/18 07:00 104 111/63 (79) 02/09/18 06:24 Mechanical Ventilator 02/09/18 06:00 108 98/58 (71) 02/09/18 05:37 60 02/09/18 05:15 108 35 Mechanical Ventilator 60 02/09/18 05:12 108 35 60 02/09/18 05:00 107 132/72 (92) 02/09/18 04:00 95.2 107 131/85 (100) 02/09/18 03:45 96.8 81 12 102/50 99 Room Air 87 02/09/18 02:30 96.8 87 12 102/50 99 Room Air 02/09/18 01:30 96.8 81 12 106/56 99 Room Air 02/09/18 00:30 96.8 91 17 96/49 100 Room Air 02/08/18 23:35 96.8 89 15 114/58 100 Room Air 02/08/18 23:30 101 12 Room Air 02/08/18 23:10 99.1 101 12 110/72 99 Room Air Intake and Output 02/08/18 02/09/18 18:59 06:59 Intake Total 2125 ml Output Total 600 ml Balance 1525 ml Intake Oral 0 ml IV Total 2125 ml Output Urine Total 600 ml Laboratory Tests Test 02/08/18 23:14 02/08/18 23:25 02/08/18 23:45 02/09/18 01:20 Arterial Blood pH 7.395 (7.350-7.450) Arterial Blood Partial Pressure CO2 23.0 mmHg (35.0-45.0) *L Arterial Blood Partial Pressure O2 47.0 mmHg (75.0-100.0) Arterial Blood HCO3 13.8 mmol/L (22.0-26.0) *L Arterial Blood Oxygen Saturation 78.2 % (95-100) *L Arterial Blood Base Excess -10.0 (-2-2) *L Giovanni Test Positive White Blood Count 18.6 K/UL (4.8-10.8) H Red Blood Count 2.83 M/UL (4.20-5.40) L Hemoglobin 7.9 G/DL (12.0-16.0) L Hematocrit 25.2 % (37.0-47.0) L Mean Corpuscular Volume 89 FL (80-99) Mean Corpuscular Hemoglobin 28.0 PG (27.0-31.0) Mean Corpuscular Hemoglobin Concent 31.5 G/DL (32.0-36.0) L Red Cell Distribution Width 23.9 % (11.6-14.8) H Platelet Count 165 K/UL (150-450) Mean Platelet Volume 6.3 FL (6.5-10.1) L Neutrophils (%) (Auto) % (45.0-75.0) Lymphocytes (%) (Auto) % (20.0-45.0) Monocytes (%) (Auto) % (1.0-10.0) Eosinophils (%) (Auto) % (0.0-3.0) Basophils (%) (Auto) % (0.0-2.0) Differential Total Cells Counted 100 Neutrophils % (Manual) 92 % (45-75) H Lymphocytes % (Manual) 4 % (20-45) L Monocytes % (Manual) 4 % (1-10) Eosinophils % (Manual) 0 % (0-3) Basophils % (Manual) 0 % (0-2) Band Neutrophils 0 % (0-8) Platelet Estimate Adequate Platelet Morphology Normal Hypochromasia 1+ Anisocytosis 1+ Target Cells 1+ Prothrombin Time 18.7 SEC (9.30-11.50) H Prothromb Time International Ratio 1.8 (0.9-1.1) H Activated Partial Thromboplast Time 32 SEC (23-33) Sodium Level 137 MMOL/L (136-145) Potassium Level 5.4 MMOL/L (3.5-5.1) H Chloride Level 105 MMOL/L (98-107) Carbon Dioxide Level 17 MMOL/L (21-32) L Anion Gap 15 mmol/L (5-15) Blood Urea Nitrogen 34 mg/dL (7-18) H Creatinine 2.6 MG/DL (0.55-1.30) H Estimat Glomerular Filtration Rate 22.3 mL/min (>60) Glucose Level 86 MG/DL (74-106) Lactic Acid Level 3.90 mmol/L (0.4-2.0) H 3.80 mmol/L (0.66-2.22) H Calcium Level 8.4 MG/DL (8.5-10.1) L Total Bilirubin 2.0 MG/DL (0.2-1.0) H Direct Bilirubin 1.4 MG/DL (0.0-0.3) H Aspartate Amino Transf (AST/SGOT) 588 U/L (15-37) H Alanine Aminotransferase (ALT/SGPT) 53 U/L (12-78) Alkaline Phosphatase 14 U/L (46-116) L Ammonia 155 umol/L (11-32) H Total Creatine Kinase 203 U/L (26-308) Troponin I 0.000 ng/mL (0.000-0.056) Pro-B-Type Natriuretic Peptide 1858 pg/mL (0-125) H Total Protein 6.6 G/DL (6.4-8.2) Albumin 1.8 G/DL (3.4-5.0) L Globulin 4.8 g/dL Albumin/Globulin Ratio 0.4 (1.0-2.7) L Lipase 128 U/L (73-393) Urine Color Yellow Urine Appearance Cloudy Urine pH 6 (4.5-8.0) Urine Specific [place] 1.010 (1.005-1.035) Urine Protein 2+ (NEGATIVE) H Urine Glucose (UA) Negative (NEGATIVE) Urine Ketones 1+ (NEGATIVE) H Urine Blood 4+ (NEGATIVE) H Urine Nitrite Negative (NEGATIVE) Urine Bilirubin Negative (NEGATIVE) Urine Urobilinogen 1 MG/DL (0.0-1.0) H Urine Leukocyte Esterase 3+ (NEGATIVE) H Urine RBC 15-20 /HPF (0 - 2) H Urine WBC 60-80 /HPF (0 - 2) H Urine Squamous Epithelial Cells Moderate /LPF (NONE/OCC) H Urine Bacteria Many /HPF (NONE) H Test 02/09/18 03:19 02/09/18 04:15 02/09/18 06:05 Urine Opiates Screen Positive (NEGATIVE) H Urine Barbiturates Screen Negative (NEGATIVE) Phencyclidine (PCP) Screen Negative (NEGATIVE) Urine Amphetamines Screen Negative (NEGATIVE) Urine Benzodiazepines Screen Positive (NEGATIVE) H Urine Cocaine Screen Negative (NEGATIVE) Urine Marijuana (THC) Screen Negative (NEGATIVE) Arterial Blood pH 7.469 (7.350-7.450) 7.509 (7.350-7.450) Arterial Blood Partial Pressure CO2 15.7 mmHg (35.0-45.0) *L 15.0 mmHg (35.0-45.0) *L Arterial Blood Partial Pressure O2 53.4 mmHg (75.0-100.0) L 205.3 mmHg (75.0-100.0) H Arterial Blood HCO3 11.1 mmol/L (22.0-26.0) *L 11.7 mmol/L (22.0-26.0) *L Arterial Blood Oxygen Saturation 87.0 % (95-100) *L 99.7 % (95-100) Arterial Blood Base Excess -10.9 (-2-2) *L -10.3 (-2-2) *L Giovanni Test Positive Positive Microbiology Date/Time Source Procedure Growth Status 02/09/18 01:00 Rectum Received Height (Feet): 5 Height (Inches): 7.00 Weight (Pounds): 126 Medications Current Medications Medications (Trade) Dose Ordered Sig/Tulio Route PRN Reason Start Time Stop Time Status Last Admin Dose Admin Acetaminophen (Tylenol) 650 mg Q4H PRN ORAL Mild Pain (Pain Scale 1-3) 02/09/18 06:15 03/11/18 02:14 Barium Sulfate (Readi-Cat 2) 450 ml NOW PRN ORAL Radiology Procedure 02/09/18 06:00 Dextrose (Dextrose 50%) 25 ml Q30M PRN IV Hypoglycemia 02/09/18 04:45 03/11/18 02:14 Dextrose (Dextrose 50%) 50 ml Q30M PRN IV Hypoglycemia 02/09/18 04:45 03/11/18 02:14 Famotidine (Pepcid) 20 mg DAILY ORAL 02/09/18 09:00 03/11/18 08:59 Lactulose (Cephulac) 30 gm FOUR TIMES A DAY RECTAL 02/09/18 09:00 03/11/18 08:59 Future Hold Levothyroxine Sodium (Synthroid) 50 mcg DAILY@0630 ORAL 02/09/18 06:30 03/11/18 06:29 Ondansetron HCl (Zofran) 4 mg Q6H PRN IVP Nausea & Vomiting 02/09/18 04:27 03/11/18 04:26 Phytonadione 10 mg/Dextrose 56 ml @ 112 mls/hr ONCE IVPB 02/09/18 09:00 02/09/18 10:30 Sodium Chloride 1,000 ml @ 125 mls/hr Q8H IV 02/09/18 06:00 03/11/18 05:59 02/09/18 05:49 Vancomycin HCl (Vanco rx to dose) 1 ea DAILY PRN MISC per protocol 02/09/18 06:00 03/11/18 05:59 Assessment/Plan Problem List: (1) Abdominal distension Assessment & Plan: soft distended abdomen with hypoactive bowel sounds. prior surgical scar well healed. fluid shift noted. +bloody BM -NPO -IV fluids -NG or OG tube to low intermittent suction -CT A/P will follow with recs thank you ICD Codes: R14.0 - Abdominal distension (gaseous) SNOMED: 91226137 (2) Sepsis Assessment & Plan: Cont current care and management on IV abx Vent support and care ICD Codes: A41.9 - Sepsis, unspecified organism SNOMED: 40528728 Status: unchanged NaraDomingo Feb 09, 2018 09:38
[2018-02-09 10:13] LABS: HEMATOCRIT 19.1 % (37.0-47.0); MEAN CORPUSCULAR VOLUME 92 FL (80-99); PLATELET COUNT 153 K/UL (150-450); RED BLOOD COUNT 2.06 M/UL (4.20-5.40); RED CELL DISTRIBUTION WIDTH 24.4 % (11.6-14.8)
[2018-02-09 10:18] LABS: HEMOGLOBIN 5.8 G/DL (12.0-16.0); WHITE BLOOD COUNT 26.9 K/UL (4.8-10.8)
[2018-02-09 10:25] LABS: ANION GAP 24 mmol/L (5-15); BLOOD UREA NITROGEN 34 mg/dL (7-18); CALCIUM 7.6 MG/DL (8.5-10.1); CARBON DIOXIDE 11 MMOL/L (21-32); CHLORIDE 108 MMOL/L (98-107); CREATININE 2.4 MG/DL (0.55-1.30); POTASSIUM 4.4 MMOL/L (3.5-5.1); SODIUM 143 MMOL/L (136-145)
--- NOTE | 2018-02-09 10:39 | Consultation ---
Consult Note Consult Note PULMONARY CONSULTATION HISTORY OF PRESENT ILLNESS: The patient is a 67-year-old female who presented to the emergency room for acute encephalopathy/altered mental status, brought in by EMS. EMS had informed the emergency room that the patient was at hospice care. The patient presented to the telemetry floor. However, documentation of hospice could not be ascertained. The patient deteriorated respiratory borges and was immediately transferred to the intensive care unit at 4 a.m. She was intubated early this morning. Currently she is on AC mode with 100% FiO2. PAST MEDICAL HISTORY: 1. Metastatic breast cancer with liver metastases. 2. Ascites. 3. Seizure disorder. ALLERGIES: No known drug allergies. FAMILY HISTORY: Unobtainable. PAST SURGICAL HISTORY: Unobtainable. LABORATORY DATA: Dated 02/09/2018, ABG 7.469, pCO2 of 16, pO2 of 53, base excess of -11, and O2 saturation of 87. Sodium 137, potassium 5.4, chloride 105, bicarbonate 17, BUN 34, and creatinine 2.6. Lactic acid of 3.9. Ammonia level of 155. AST and ALT are 588 and 53. Positive for opioids and benzodiazepines. PHYSICAL EXAMINATION: VITAL SIGNS: Blood pressure 102/50, respiratory rate 35, pulse 108, and temperature 96.8. Mechanically ventilated. GENERAL: The patient intubated, encephalopathic, on mechanical ventilation. HEENT: Extraocular muscles are intact. No lymphadenopathy noted. CARDIOVASCULAR: S1 and S2. No rubs or gallops with tachycardia. PULMONARY: Clear to auscultation bilaterally with no rales, rhonchi, or wheezes. ABDOMEN: Distended. Very quiet bowel sounds. Difficult to ascertain fluid wave shift due to tension. EXTREMITIES: No edema. ASSESSMENT AND PLAN: 1. Septic shock with a white cell count of 19,000 and hemoglobin of 7.9. The patient has been started on broad-spectrum antibiotics, was given Zosyn and Levaquin in the emergency room in addition for gram further positive coverage will be given vancomycin. The patient's blood pressure is currently stable. Aggressive intravenous hydration with normal saline. Infectious Disease to tailor antibiotic therapy. 2. Acute kidney injury. Baseline creatinine not entirely clear. At this time, aggressively hydrate the patient and monitor her electrolytes. CT of the abdomen and pelvis are pending. 3. Abdominal distention. The patient has a history of breast cancer with liver metastases. CT of the abdomen and pelvis have been ordered. 4. Hepatic encephalopathy with elevated ammonia level, with a history of breast cancer with liver METS. Gastroenterology has been consulted along with general surgery to evaluate distended tense abdomen with decreased bowel sounds. 5. Respiratory failure. The patient has an ABG with a pH of 7.49. At this time, I will continue current vent settings. 6. Mild hyperkalemia. Potassium 5.4. The patient received 20 mg intravenous Lasix. The patient is critically ill with known metastatic breast cancer to the liver. Discussed with . Agree with comfort care. MD Jazmín aCno Omar Syed MD Feb 09, 2018 10:39
--- NOTE | 2018-02-09 10:43 | Diagnostic Imaging Report ---
EXAM: XR Abdomen, 2 Views CLINICAL HISTORY: Abdominal distention TECHNIQUE: Frontal view of the abdomen/pelvis with upright view of the abdomen. COMPARISON: Abdominal x-ray dated 02/08/18 FINDINGS: Intraperitoneal space: No visible free air under the diaphragm. Gastrointestinal tract: Relative paucity of bowel gas, unchanged. Bowel gas pattern is otherwise unremarkable. No evidence of pneumatosis intestinalis. Organs: Renal shadows appear unremarkable. No abnormal calcifications in the abdomen or pelvis. Bones/joints: Unremarkable. Soft tissues: Radiodense clips overlie the right abdomen. Tubes, lines and devices: Nasogastric tube with the tip in the expected region of the gastric body. IMPRESSION: 1. Nasogastric tube tip in the expected region of the gastric body. 2. Unchanged relative paucity of bowel gas in a nonspecific bowel gas pattern.
[2018-02-09] MEDS ORDERED: Piperacillin/Tazobactam 3.375 GM in D5W 110 ML IVPB SCH (14:00)
--- NOTE | 2018-02-09 14:35 | Infectious Diseases Prog Note ---
Assessment/Plan Problems: (1) Sepsis Assessment & Plan: source suspect abdominal pathology with bloody diarrhea, will start zosyn pending blood culture (2) Bloody diarrhea Assessment & Plan: ischemic colitis VS diverticulosis releated bleeding, continue antibiotics, with hydration, monitor H/H , transfuse blood as needed , surgery is following (3) Liver metastases Assessment & Plan: poor prognosis complicated with hepatic encephalopathy (4) Metastatic breast cancer Assessment & Plan: poor prognosis , needs comfort measures (5) Altered level of consciousness Assessment & Plan: due to the above , continue hydration and antibiotics , monitor ammonia level Subjective Allergies: Coded Allergies: No Known Allergies (Unverified , 12/20/16) NKA UNABLE TO ASSESS (Unverified , 02/08/18) patient is unresponsive Objective Vital Signs Last 24 Hour Vital Signs Date Time Temp Pulse Resp B/P (MAP) Pulse Ox O2 Delivery O2 Flow Rate FiO2 02/09/18 14:00 112 30 122/56 (78) 02/09/18 13:00 98 30 116/64 (81) 02/09/18 12:00 97.0 99 31 114/65 (81) 02/09/18 12:00 60 02/09/18 12:00 Endotracheal Tube 02/09/18 12:00 99 02/09/18 11:21 100 32 60 02/09/18 11:00 99 30 131/66 (87) 02/09/18 10:00 102 29 117/71 (86) 100 02/09/18 09:03 107 32 60 02/09/18 09:00 101 25 123/72 (89) 100 02/09/18 08:00 60 02/09/18 08:00 Endotracheal Tube 02/09/18 08:00 97.0 103 46 110/63 (79) 100 02/09/18 08:00 103 02/09/18 07:18 105 35 60 02/09/18 07:00 104 111/63 (79) 02/09/18 06:24 Mechanical Ventilator 02/09/18 06:00 108 98/58 (71) 02/09/18 05:37 60 02/09/18 05:15 108 35 Mechanical Ventilator 60 02/09/18 05:12 108 35 60 02/09/18 05:00 107 132/72 (92) 02/09/18 04:00 95.2 107 131/85 (100) 02/09/18 03:45 96.8 81 12 102/50 99 Room Air 87 02/09/18 02:30 96.8 87 12 102/50 99 Room Air 02/09/18 01:30 96.8 81 12 106/56 99 Room Air 02/09/18 00:30 96.8 91 17 96/49 100 Room Air 02/08/18 23:35 96.8 89 15 114/58 100 Room Air 02/08/18 23:30 101 12 Room Air 02/08/18 23:10 99.1 101 12 110/72 99 Room Air Height (Feet): 5 Height (Inches): 7.00 Weight (Pounds): 126 Microbiology Date/Time Source Procedure Growth Status 02/09/18 01:00 Rectum Received Laboratory Tests Test 02/08/18 23:14 02/08/18 23:25 02/08/18 23:45 02/09/18 01:20 Arterial Blood pH 7.395 (7.350-7.450) Arterial Blood Partial Pressure CO2 23.0 mmHg (35.0-45.0) *L Arterial Blood Partial Pressure O2 47.0 mmHg (75.0-100.0) Arterial Blood HCO3 13.8 mmol/L (22.0-26.0) *L Arterial Blood Oxygen Saturation 78.2 % (95-100) *L Arterial Blood Base Excess -10.0 (-2-2) *L Giovanni Test Positive White Blood Count 18.6 K/UL (4.8-10.8) H Red Blood Count 2.83 M/UL (4.20-5.40) L Hemoglobin 7.9 G/DL (12.0-16.0) L Hematocrit 25.2 % (37.0-47.0) L Mean Corpuscular Volume 89 FL (80-99) Mean Corpuscular Hemoglobin 28.0 PG (27.0-31.0) Mean Corpuscular Hemoglobin Concent 31.5 G/DL (32.0-36.0) L Red Cell Distribution Width 23.9 % (11.6-14.8) H Platelet Count 165 K/UL (150-450) Mean Platelet Volume 6.3 FL (6.5-10.1) L Neutrophils (%) (Auto) % (45.0-75.0) Lymphocytes (%) (Auto) % (20.0-45.0) Monocytes (%) (Auto) % (1.0-10.0) Eosinophils (%) (Auto) % (0.0-3.0) Basophils (%) (Auto) % (0.0-2.0) Differential Total Cells Counted 100 Neutrophils % (Manual) 92 % (45-75) H Lymphocytes % (Manual) 4 % (20-45) L Monocytes % (Manual) 4 % (1-10) Eosinophils % (Manual) 0 % (0-3) Basophils % (Manual) 0 % (0-2) Band Neutrophils 0 % (0-8) Platelet Estimate Adequate Platelet Morphology Normal Hypochromasia 1+ Anisocytosis 1+ Target Cells 1+ Prothrombin Time 18.7 SEC (9.30-11.50) H Prothromb Time International Ratio 1.8 (0.9-1.1) H Activated Partial Thromboplast Time 32 SEC (23-33) Sodium Level 137 MMOL/L (136-145) Potassium Level 5.4 MMOL/L (3.5-5.1) H Chloride Level 105 MMOL/L (98-107) Carbon Dioxide Level 17 MMOL/L (21-32) L Anion Gap 15 mmol/L (5-15) Blood Urea Nitrogen 34 mg/dL (7-18) H Creatinine 2.6 MG/DL (0.55-1.30) H Estimat Glomerular Filtration Rate 22.3 mL/min (>60) Glucose Level 86 MG/DL (74-106) Lactic Acid Level 3.90 mmol/L (0.4-2.0) H 3.80 mmol/L (0.66-2.22) H Calcium Level 8.4 MG/DL (8.5-10.1) L Total Bilirubin 2.0 MG/DL (0.2-1.0) H Direct Bilirubin 1.4 MG/DL (0.0-0.3) H Aspartate Amino Transf (AST/SGOT) 588 U/L (15-37) H Alanine Aminotransferase (ALT/SGPT) 53 U/L (12-78) Alkaline Phosphatase 14 U/L (46-116) L Ammonia 155 umol/L (11-32) H Total Creatine Kinase 203 U/L (26-308) Troponin I 0.000 ng/mL (0.000-0.056) Pro-B-Type Natriuretic Peptide 1858 pg/mL (0-125) H Total Protein 6.6 G/DL (6.4-8.2) Albumin 1.8 G/DL (3.4-5.0) L Globulin 4.8 g/dL Albumin/Globulin Ratio 0.4 (1.0-2.7) L Lipase 128 U/L (73-393) Urine Color Yellow Urine Appearance Cloudy Urine pH 6 (4.5-8.0) Urine Specific [place] 1.010 (1.005-1.035) Urine Protein 2+ (NEGATIVE) H Urine Glucose (UA) Negative (NEGATIVE) Urine Ketones 1+ (NEGATIVE) H Urine Blood 4+ (NEGATIVE) H Urine Nitrite Negative (NEGATIVE) Urine Bilirubin Negative (NEGATIVE) Urine Urobilinogen 1 MG/DL (0.0-1.0) H Urine Leukocyte Esterase 3+ (NEGATIVE) H Urine RBC 15-20 /HPF (0 - 2) H Urine WBC 60-80 /HPF (0 - 2) H Urine Squamous Epithelial Cells Moderate /LPF (NONE/OCC) H Urine Bacteria Many /HPF (NONE) H Test 02/09/18 03:19 02/09/18 04:15 02/09/18 06:05 02/09/18 09:10 Urine Opiates Screen Positive (NEGATIVE) H Urine Barbiturates Screen Negative (NEGATIVE) Phencyclidine (PCP) Screen Negative (NEGATIVE) Urine Amphetamines Screen Negative (NEGATIVE) Urine Benzodiazepines Screen Positive (NEGATIVE) H Urine Cocaine Screen Negative (NEGATIVE) Urine Marijuana (THC) Screen Negative (NEGATIVE) Arterial Blood pH 7.469 (7.350-7.450) 7.509 (7.350-7.450) Arterial Blood Partial Pressure CO2 15.7 mmHg (35.0-45.0) *L 15.0 mmHg (35.0-45.0) *L Arterial Blood Partial Pressure O2 53.4 mmHg (75.0-100.0) L 205.3 mmHg (75.0-100.0) H Arterial Blood HCO3 11.1 mmol/L (22.0-26.0) *L 11.7 mmol/L (22.0-26.0) *L Arterial Blood Oxygen Saturation 87.0 % (95-100) *L 99.7 % (95-100) Arterial Blood Base Excess -10.9 (-2-2) *L -10.3 (-2-2) *L Giovanni Test Positive Positive Lactic Acid Level 12.40 mmol/L (0.4-2.0) H Test 02/09/18 09:30 White Blood Count 26.9 K/UL (4.8-10.8) *H Red Blood Count 2.06 M/UL (4.20-5.40) L Hemoglobin 5.8 G/DL (12.0-16.0) *L Hematocrit 19.1 % (37.0-47.0) L Mean Corpuscular Volume 92 FL (80-99) Mean Corpuscular Hemoglobin 28.0 PG (27.0-31.0) Mean Corpuscular Hemoglobin Concent 30.3 G/DL (32.0-36.0) L Red Cell Distribution Width 24.4 % (11.6-14.8) H Platelet Count 153 K/UL (150-450) Mean Platelet Volume 6.9 FL (6.5-10.1) Neutrophils (%) (Auto) % (45.0-75.0) Lymphocytes (%) (Auto) % (20.0-45.0) Monocytes (%) (Auto) % (1.0-10.0) Eosinophils (%) (Auto) % (0.0-3.0) Basophils (%) (Auto) % (0.0-2.0) Differential Total Cells Counted 100 Neutrophils % (Manual) 66 % (45-75) Lymphocytes % (Manual) 6 % (20-45) L Monocytes % (Manual) 6 % (1-10) Eosinophils % (Manual) 0 % (0-3) Basophils % (Manual) 0 % (0-2) Band Neutrophils 22 % (0-8) H Nucleated Red Blood Cells 1 /100 WBC Platelet Estimate Adequate Platelet Morphology Normal Polychromasia 2+ Hypochromasia 3+ Anisocytosis 3+ Tear Drop Cells 1+ [place] Cells 1+ Sodium Level 143 MMOL/L (136-145) Potassium Level 4.4 MMOL/L (3.5-5.1) Chloride Level 108 MMOL/L (98-107) H Carbon Dioxide Level 11 MMOL/L (21-32) L Anion Gap 24 mmol/L (5-15) H Blood Urea Nitrogen 34 mg/dL (7-18) H Creatinine 2.4 MG/DL (0.55-1.30) H Estimat Glomerular Filtration Rate 24.5 mL/min (>60) Glucose Level 92 MG/DL (74-106) Calcium Level 7.6 MG/DL (8.5-10.1) L Current Medications Medications (Trade) Dose Ordered Sig/Tulio Route PRN Reason Start Time Stop Time Status Last Admin Dose Admin Acetaminophen (Tylenol) 650 mg Q4H PRN ORAL Mild Pain (Pain Scale 1-3) 02/09/18 06:15 03/11/18 02:14 Barium Sulfate (Readi-Cat 2) 450 ml NOW PRN ORAL Radiology Procedure 02/09/18 06:00 Dextrose (Dextrose 50%) 25 ml Q30M PRN IV Hypoglycemia 02/09/18 04:45 03/11/18 02:14 Dextrose (Dextrose 50%) 50 ml Q30M PRN IV Hypoglycemia 02/09/18 04:45 03/11/18 02:14 Famotidine (Pepcid) 20 mg DAILY ORAL 02/09/18 09:00 03/11/18 08:59 Lactulose (Cephulac) 30 gm FOUR TIMES A DAY RECTAL 02/09/18 09:00 03/11/18 08:59 Future Hold Levothyroxine Sodium (Synthroid) 50 mcg DAILY@0630 ORAL 02/09/18 06:30 03/11/18 06:29 Ondansetron HCl (Zofran) 4 mg Q6H PRN IVP Nausea & Vomiting 02/09/18 04:27 03/11/18 04:26 Piperacillin Sod/ Tazobactam Sod 3.375 gm/Dextrose 110 ml @ 27.5 mls/hr EVERY 8 HOURS IVPB 02/09/18 14:00 02/14/18 13:59 Sodium Chloride 1,000 ml @ 125 mls/hr Q8H IV 02/09/18 06:00 03/11/18 05:59 02/09/18 05:49 Vancomycin HCl (Vanco rx to dose) 1 ea DAILY PRN MISC per protocol 02/09/18 06:00 03/11/18 05:59 Jennifer Gutierrez M.D. Feb 09, 2018 14:35
--- NOTE | 2018-02-09 14:57 | Cardiology Report ---
APPROVED REPORT EKG Measurement Heart [id number] Normal sinus rhythm Low voltage QRS Left anterior fascicular block Nonspecific T wave abnormality Abnormal ECG
--- NOTE | 2018-02-09 17:30 | Consultation ---
DATE OF CONSULTATION: 02/09/2018 INFECTIOUS DISEASE CONSULTATION CONSULTING PHYSICIAN: Jennifer Gutierrez M.D. REFERRING PHYSICIAN: Andrea Taveras M.D. REASON FOR CONSULTATION: Sepsis with colitis, recommendation for antibiotics treatment, and urinary tract infection. HISTORY OF PRESENT ILLNESS: The patient is a 67-year-old female with past medical history of metastatic breast cancer to the liver, was brought into the emergency room at [facility] for altered mental status and encephalopathy. The patient previously was on hospice care. It is unclear whether she is still on hospice care at this point or not. The patient had worsening respiratory failure. Immediately, she was intubated in the emergency room and transferred to intensive care unit for further care. The patient was found to have significant leukocytosis with bloody diarrhea concerning for GI bleeding or ischemic process, so she was started on antibiotics and Infectious Disease consultation was requested for antibiotics treatment and further management. Of note, the patient is intubated on ventilator, cannot provide any history. History was mainly obtained from the medical record. REVIEW OF SYSTEMS: Unable to obtain. The patient is intubated on mechanical ventilation, unable to provide any history. PAST MEDICAL HISTORY: Significant for, 1. Metastatic breast cancer with liver metastasis. 2. Ascites. FAMILY HISTORY: Unable to obtain. PAST SURGICAL HISTORY: Not on record, unable to obtain at this point. SOCIAL HISTORY: Unclear whether she was at home or shelter facility. No recent drugs, tobacco, or alcohol on record. ALLERGIES: She has no known drug allergy. MEDICATIONS: She received Zosyn in the emergency room and vancomycin. For rest of her medications, please refer to MAR. LABORATORY AND DIAGNOSTIC DATA: Labs showed white count 26,900, hemoglobin 5.8, and platelet count 153,000. BUN 34, creatinine 2.4. Urinalysis showed leukocyte esterase +3, wbc's 60 to 80, urine bacteria many. IMAGIN. Abdominal x-ray showed nonobstructive bowel gas pattern. 2. Chest x-ray showed endotracheal tube appropriately positioned, right pleural effusion with right basilar atelectasis or scarring. PHYSICAL EXAMINATION: VITAL SIGNS: Temperature 97, pulse 99, respirations 31, and blood pressure 114/65. Saturation 100% on 60% FiO2 ET tube. GENERAL: A middle-aged female, intubated on mechanical ventilation, unresponsive. HEENT: Normocephalic and atraumatic. Pupils are not reactive to light. Pale sclerae. Unable to assess oral mucosa. NECK: Supple. No lymphadenopathy. CARDIOVASCULAR: She is tachycardic. S1, S2 normal. No murmur. LUNGS: She had diminished breathing sounds at the bases with crackles. ABDOMEN: Soft, distended with ascites. No organomegaly. Unable to appreciate any rebound. EXTREMITIES: Trace edema. No cyanosis. ASSESSMENT AND RECOMMENDATION: 1. Sepsis with leukocytosis, source suspect intra-abdominal pathology versus pneumonia. We will start vancomycin pending blood culture results. The patient received vancomycin in the emergency room. We will monitor trough. Pharmacy to dose vancomycin based on her creatine clearance. 2. Bloody diarrhea, suspect ischemic colitis versus diverticulosis related bleeding. Continue hydration with antibiotics and blood transfusion as needed. Monitor H and H. Surgery is following. Consult GI. 3. Liver metastasis from breast cancer. Poor prognosis complicated with hepatic encephalopathy. The patient was on hospice care previously. Unclear if she is still on it or not. Primary will verify today. 4. Metastatic breast cancer with poor prognosis. Management as per primary. 5. Altered level of consciousness due to the above. Continue hydration and antibiotics. Monitor ammonia level. Thank you for the consult. ID will continue to follow. Please feel free to call with any question. Jennifer Gutierrez M.D. DR: CHUY JOB#: [id number] CC:
--- NOTE | 2018-02-09 17:43 | General Progress Note ---
Assessment/Plan Assessment/Plan GI CONSULT Dictated D/w family - they wish to pursue/continue terminal care Would manage conservatively Thank you Eric Bull MD Subjective Allergies: Coded Allergies: No Known Allergies (Unverified , 12/20/16) NKA UNABLE TO ASSESS (Unverified , 02/08/18) patient is unresponsive Objective Last 24 Hour Vital Signs Date Time Temp Pulse Resp B/P (MAP) Pulse Ox O2 Delivery O2 Flow Rate FiO2 02/09/18 17:19 Nasal Cannula 2.0 28 02/09/18 17:00 104 28 107/52 (70) 02/09/18 16:00 Endotracheal Tube 02/09/18 16:00 101 02/09/18 16:00 60 02/09/18 16:00 96.0 101 28 109/57 (74) 02/09/18 15:25 102 28 60 02/09/18 15:00 101 39 110/49 (69) 02/09/18 14:00 112 30 122/56 (78) 02/09/18 13:14 101 26 60 02/09/18 13:00 98 30 116/64 (81) 02/09/18 12:00 97.0 99 31 114/65 (81) 02/09/18 12:00 60 02/09/18 12:00 Endotracheal Tube 02/09/18 12:00 99 02/09/18 11:21 100 32 60 02/09/18 11:00 99 30 131/66 (87) 02/09/18 10:00 102 29 117/71 (86) 100 02/09/18 09:03 107 32 60 02/09/18 09:00 101 25 123/72 (89) 100 02/09/18 08:00 60 02/09/18 08:00 Endotracheal Tube 02/09/18 08:00 97.0 103 46 110/63 (79) 100 02/09/18 08:00 103 02/09/18 07:18 105 35 60 02/09/18 07:00 104 111/63 (79) 02/09/18 06:24 Mechanical Ventilator 02/09/18 06:00 108 98/58 (71) 02/09/18 05:37 60 02/09/18 05:15 108 35 Mechanical Ventilator 60 02/09/18 05:12 108 35 60 02/09/18 05:00 107 132/72 (92) 02/09/18 04:00 95.2 107 131/85 (100) 02/09/18 03:45 96.8 81 12 102/50 99 Room Air 87 02/09/18 02:30 96.8 87 12 102/50 99 Room Air 02/09/18 01:30 96.8 81 12 106/56 99 Room Air 02/09/18 00:30 96.8 91 17 96/49 100 Room Air 02/08/18 23:35 96.8 89 15 114/58 100 Room Air 02/08/18 23:30 101 12 Room Air 02/08/18 23:10 99.1 101 12 110/72 99 Room Air Intake and Output 02/08/18 02/09/18 19:00 07:00 Intake Total 2250 ml Output Total 650 ml Balance 1600 ml Intake Oral 0 ml IV Total 2250 ml Output Urine Total 650 ml Laboratory Tests 02/08/18 23:14: Arterial Blood pH 7.395, Arterial Blood Partial Pressure CO2 23.0*L, Arterial Blood Partial Pressure O2 47.0*L, Arterial Blood HCO3 13.8*L, Arterial Blood Oxygen Saturation 78.2*L, Arterial Blood Base Excess -10.0*L, Giovanni Test Positive 02/08/18 23:25: White Blood Count 18.6H, Red Blood Count 2.83L, Hemoglobin 7.9L, Hematocrit 25.2L, Mean Corpuscular Volume 89, Mean Corpuscular Hemoglobin 28.0, Mean Corpuscular Hemoglobin Concent 31.5L, Red Cell Distribution Width 23.9H, Platelet Count 165, Mean Platelet Volume 6.3L, Neutrophils (%) (Auto) , Lymphocytes (%) (Auto) , Monocytes (%) (Auto) , Eosinophils (%) (Auto) , Basophils (%) (Auto) , Differential Total Cells Counted 100, Neutrophils % ( Manual) 92H, Lymphocytes % (Manual) 4L, Monocytes % (Manual) 4, Eosinophils % ( Manual) 0, Basophils % (Manual) 0, Band Neutrophils 0, Platelet Estimate Adequate, Platelet Morphology Normal, Hypochromasia 1+, Anisocytosis 1+, Target Cells 1+, Prothrombin Time 18.7H, Prothromb Time International Ratio 1.8H, Activated Partial Thromboplast Time 32, Sodium Level 137, Potassium Level 5.4H, Chloride Level 105, Carbon Dioxide Level 17L, Anion Gap 15, Blood Urea Nitrogen 34H, Creatinine 2.6H, Estimat Glomerular Filtration Rate 22.3, Glucose Level 86 , Lactic Acid Level 3.90H, Calcium Level 8.4L, Total Bilirubin 2.0H, Direct Bilirubin 1.4H, Aspartate Amino Transf (AST/SGOT) 588H, Alanine Aminotransferase (ALT/SGPT) 53, Alkaline Phosphatase 14L, Ammonia 155H, Total Creatine Kinase 203, Troponin I 0.000, Pro-B-Type Natriuretic Peptide 1858H, Total Protein 6.6, Albumin 1.8L, Globulin 4.8, Albumin/Globulin Ratio 0.4L, Lipase 128 02/08/18 23:45: Urine Color Yellow, Urine Appearance Cloudy, Urine pH 6, Urine Specific Queen 1.010, Urine Protein 2+H, Urine Glucose (UA) Negative, Urine Ketones 1+H, Urine Blood 4+H, Urine Nitrite Negative, Urine Bilirubin Negative, Urine Urobilinogen 1H, Urine Leukocyte Esterase 3+H, Urine RBC 15-20H, Urine WBC 60-80H, Urine Squamous Epithelial Cells ModerateH, Urine Bacteria ManyH 02/09/18 01:20: Lactic Acid Level 3.80H 02/09/18 03:19: Urine Opiates Screen PositiveH, Urine Barbiturates Screen Negative, Phencyclidine (PCP) Screen Negative, Urine Amphetamines Screen Negative, Urine Benzodiazepines Screen PositiveH, Urine Cocaine Screen Negative, Urine Marijuana (THC) Screen Negative 02/09/18 04:15: Arterial Blood pH 7.469H, Arterial Blood Partial Pressure CO2 15.7*L, Arterial Blood Partial Pressure O2 53.4L, Arterial Blood HCO3 11.1*L, Arterial Blood Oxygen Saturation 87.0*L, Arterial Blood Base Excess -10.9*L, Giovanni Test Positive 02/09/18 06:05: Arterial Blood pH 7.509H, Arterial Blood Partial Pressure CO2 15.0*L, Arterial Blood Partial Pressure O2 205.3H, Arterial Blood HCO3 11.7*L, Arterial Blood Oxygen Saturation 99.7, Arterial Blood Base Excess -10.3*L, Giovanni Test Positive 02/09/18 09:10: Lactic Acid Level 12.40H 02/09/18 09:30: White Blood Count 26.9*H, Red Blood Count 2.06L, Hemoglobin 5.8*L, Hematocrit 19.1L, Mean Corpuscular Volume 92, Mean Corpuscular Hemoglobin 28.0, Mean Corpuscular Hemoglobin Concent 30.3L, Red Cell Distribution Width 24.4H, Platelet Count 153, Mean Platelet Volume 6.9, Neutrophils (%) (Auto) , Lymphocytes (%) (Auto) , Monocytes (%) (Auto) , Eosinophils (%) (Auto) , Basophils (%) (Auto) , Differential Total Cells Counted 100, Neutrophils % ( Manual) 66, Lymphocytes % (Manual) 6L, Monocytes % (Manual) 6, Eosinophils % ( Manual) 0, Basophils % (Manual) 0, Band Neutrophils 22H, Nucleated Red Blood Cells 1, Platelet Estimate Adequate, Platelet Morphology Normal, Polychromasia 2 +, Hypochromasia 3+, Anisocytosis 3+, Tear Drop Cells 1+, Ita Cells 1+, Sodium Level 143, Potassium Level 4.4, Chloride Level 108H, Carbon Dioxide Level 11L, Anion Gap 24H, Blood Urea Nitrogen 34H, Creatinine 2.4H, Estimat Glomerular Filtration Rate 24.5, Glucose Level 92, Calcium Level 7.6L Height (Feet): 5 Height (Inches): 7.00 Weight (Pounds): 126 Eric Bull MD Feb 09, 2018 17:43
--- NOTE | 2018-02-09 20:00 | Consultation ---
DATE OF CONSULTATION: 02/09/2018 GASTROLOGY CONSULTATION CHIEF COMPLAINT: I was asked to see this patient by Dr. Andrea Taveras. HISTORY OF PRESENT ILLNESS: This is a 67-year-old woman with a history of metastatic breast cancer plus extensive liver metastases, who is here in the emergency room, and is subsequently admitted to the intensive care unit. She is now intubated and unable to provide any history. Apparently, the patient was in the hospice care, but the insufflation was not readily available and therefore, she is intubated. This morning, the patient was noted to have brown occult stools. I had the extensive discussion with the patient's family and informed including, Marnie Katz and her mother. They both agreed that the patient should need a comfort care measure category and they do appreciate the fact that the patient has end-stage malignancy and is terminal. As such, I have advised them the gastrointestinal workup for gastrointestinal bleeding. In addition, the patient has abnormal liver tests, which are preserved due to the metastatic breast and liver and this should also be handled conservatively. PAST MEDICAL HISTORY: History of metastatic breast cancer, history of extensive liver metastases, ascites, recurrent gastrointestinal bleeding, and current respiratory failure. FAMILY HISTORY: Noncontributory. SOCIAL HISTORY: The patient lives in the [facility] and has a disabled son, who now has to undergo conservatorship. REVIEW OF SYSTEMS: Unobtainable. PHYSICAL EXAMINATION: GENERAL: The patient is a debilitated woman, seen in the ICU, on the ventilator. The patient is intubated. NECK: Supple. CHEST: Revealed coarse breath sounds. CARDIOVASCULAR: Revealed a regular rate. ABDOMEN: Soft and distended with lower abdominal scar. EXTREMITIES: Revealed trace edema. LABORATORY DATA: Noted. ASSESSMENT: This patient has an extensive metastatic breast cancer with enlarged liver, liver failure, and acute gastrointestinal bleeding, and respiratory failure. The patient is terminal and the family wish to pursue with comfort measuring algorithm. I would therefore not pursue any aggressive intervention. The family was advised to contact the primary physician to take appropriate measures for change in the care status. In the meantime, comfort measures can be given as necessary. RECOMMENDATIONS: Per above discussion and per orders written in the chart. Thank you for asking me to participate in the care of this patient. Eric Bull M.D. DR: MAKENZIE JOB#: [id number] CC: GIGI
--- NOTE | 2018-02-09 21:00 | Consultation ---
DATE OF CONSULTATION: 02/09/2018 NOTE: "VERY POOR AUDIO QUALITY" HEMATOLOGY/ONCOLOGY CONSULTATION CONSULTING PHYSICIAN: Dionte Ferro M.D. REQUESTING PHYSICIAN: Andrea Taveras M.D. REASON FOR CONSULTATION: Evaluation of metastatic breast cancer and GI bleeding. ID: Dear Dr. Taveras: The patient is a pleasant 67-year-old female I have seen back in October 2017 in [facility] and at this time, she presents to the [facility] to the ER with encephalopathy and altered mental status. She did have a liver biopsy completed at [facility] and it was noted to be metastatic breast cancer. I reviewed imaging and pathology as needed as required by primary team. She was documented to be on hospice recently and she has been on hospice with another provider. Respiratory status deteriorated. She was intubated, noted to be anemic. she suffered from lower GI bleed. Hematology service was consulted for further evaluation and treatment. PAST MEDICAL HISTORY: Metastatic breast cancer with liver mets, ascites. ALLERGIES: No known drug allergies. PAST SURGICAL HISTORY: Liver biopsy . FAMILY HISTORY: Noncontributory. REVIEW OF SYSTEMS: Difficult to obtain. The patient is intubated. PHYSICAL EXAMINATION: VITAL SIGNS: Reviewed. GENERAL: No acute distress. PULMONARY: Decreased breath sounds. She is intubated at this time. Encephalopathic. CARDIOVASCULAR: Regular rate. Sinus tachycardia is noted. ABDOMEN: Distended. Decreased bowel sounds. EXTREMITIES: No cyanosis, clubbing, or edema. LABORATORY DATA: WBC of 18.6, hemoglobin 7.9, hematocrit 25, and platelets 165,000. INR of 1.8. Chemistry reviewed. BUN 34, creatinine 2.6. Lactic acid 3.8. Direct bilirubin 1.4, total bilirubin 2, AST 588, ALT 53, alkaline phosphatase , ammonia 155, total protein 6.6. ASSESSMENT AND RECOMMENDATIONS: 1. Metastatic breast cancer. She has been recently on hospice and has continued to deteriorate. Most likely, she has increased tumor burden and worsening hepatic involvement. 2. Elevated ammonia, requiring lactulose rifaximin as needed. Continue to closely monitor. GI Service has been consulted. 3. Continue the patient on hospice. 4. Coagulopathy, likely due to underlying liver disease, liver involvement, and tumor burden. Closely monitor. Administer vitamin K 10 mg. 5. Anemia due to underlying GI bleed. Closely monitor for improvement. At this time, the patient has lower GI bleed with dark red blood noted reactive process versus intubation. Primary team to further evaluate. 6. Mild hyperkalemia. Received Lasix. 7. Abdominal distention, likely due to underlying liver metastasis. 8. Encephalopathy due to liver metastasis. I appreciate the consultation. Dionte Ferro M.D. DR: CARLOS JOB#: [id number] CC:
[2018-02-10] VITALS: BP 80/24
[2018-02-10 01:00] VITALS: BP 59/21
[2018-02-10 02:00] VITALS: BP 65/40
[2018-02-10 02:22] VITALS: BP 0/0
[2018-02-10] MEDS ORDERED: Tubing IV Secondary IV ONE (02:24)
--- NOTE | 2018-02-12 09:00 | Discharge Summary ---
Discharge Summary Discharge Summary _ SUMMARY DATE OF ADMISSION: 02/09/2018 DATE OF EXPIRATION: [] 02/10/2018 REASON FOR ADMISSION: 67 years old female with history of breast cancer with metastasis to liver, allegedly on the hospice care, but no code status papers present on admission , presented with altered level of consciousness . Upon evaluation patient demonstrated abdominal distention on physical examination and stupor. Laboratory workup revealed elevated ammonia 155, leukocytosis 18.6 , coagulopathy with INR 1.8, and evidence of renal failure BUN 34, creatinine 2.6. Total bilirubin 2.0 ,direct bilirubin 1.4, AST 588. Troponin negative Urinalysis with evidence of pyuria. Lactic acid 3.9. Patient started on fluid resuscitation and empiric antibiotics, and admitted for further manageemnt with diagnosis of sepsis, metastatic breast cancer with metastasis to liver, acute kidney injury ,hepatic encephalopathy. CONSULTANTS: pulmonary Dr. Noyola ID specialist Dr. Gutierrez GI specialist Dr. Bull concrete paving machine operator/oncologist Dr. Ferro surgery [facility] COURSE: Patient initially admitted to telemetry floor . Patient was on IV fluids and empiric antibiotics. Patient subsequently deteriorated respiratory borges and was transferred to intensive care unit . Patient was hypoxic and required oral intubation. No papers regarding code status were present at that time. Program Mgr followed. Vent support and pulmonary toilet provided . Infectious disease doctor closely followed. Patient developed acute bloody diarrhea. Patient was on broad-spectrum antibiotics. Per infectious disease specialist, patient had sepsis likely due to intra- abdominal course versus pneumonia and bloody diarrhea was possibly secondary to ischemic colitis versus diverticular related bleeding in setting of coagulopathy. Vitamin K 1 given. GI specialist closely follow. Patient with evidence of liver failure ,acute GI bleeding ,coagulopathy, advanced breast cancer with liver metastasis. GI specialist on recommended comfort care, given terminal condition. Patient was on lactulose and rifaximin for hepatic encephalopathy. Surgeon seen and evaluated patient , and recommended continue NPO status, IV fluid and low intermittent suctioning via nasogastric or orogastric tube. CT of the abdomen and pelvis was ordered. Oncologist seen the patient for metastatic advanced breast cancer. Patient continued to deteriorate, most likely she had increased tumor burden and worsening hepatic involvement. He recommended comfort care. Patient condition was rapidly deteriorating. Patient with worsening leukocytosis on 02/09- 26.9 , drop in hemoglobin - 5.8 and hematocrit- 19.1 , lactic acid up to 12.4. Blood pressure was dropping. Family member came on 02/09 and brought papers from hospice. Family decided to proceed with comfort care. Subsequently code status was changed to DNR/DNI. Terminal extubation was discussed with the family , and family opted for terminal extubation . Patient subsequently was terminally extubated . Comfort care provided . Patient condition continued to deteriorate. Patient was pronounced at 02/10/18 at 02: 22 am. Cause of : cardiopulmonary arrest FINAL DIAGNOSES: Septic shock Sepsis with leukocytosis, suspecting intra-abdominal pathology versus pneumonia Acute GI bleeding/bloody diarrhea, suspecting ischemic colitis versus allergic diverticulosis related bleeding Acute kidney injury Hepatic encephalopathy Acute hypoxemic respiratory failure, requiring intubation Breast cancer with liver metastasis Liver failure Anemia due to GI bleeding Coagulopathy Abdominal distention I have been assigned to dictate discharge summary for this account. I was not involved in the patient's management. Eva Richardson NP Feb 12, 2018 09:00
== END 2018-02-10 02:25 | disposition expired | DRG 871 ==
LOC: EDBD 23:17 → EMR 23:43 → EDBEDREQ 23:54 → 2E 02-09 00:31 → EDBEDREQ 02-09 01:47 → ICU 02-09 04:09
PROC: 0BH17EZ Insertion of Endotracheal Airway into Trachea, Via Natural or Artificial Opening (ICD-10-PCS; principal; 2018-02-09)
PROC: 5A1935Z Respiratory Ventilation, Less than 24 Consecutive Hours (ICD-10-PCS; principal; 2018-02-09)
DX: A41.9 Sepsis, unspecified organism (principal); R65.21 Severe sepsis with septic shock; J18.9 Pneumonia, unspecified organism; K57.91 Diverticulosis of intestine, part unspecified, without perforation or abscess with bleeding; J96.01 Acute respiratory failure with hypoxia; K55.9 Vascular disorder of intestine, unspecified; N17.9 Acute kidney failure, unspecified; C78.7 Secondary malignant neoplasm of liver and intrahepatic bile duct; D68.4 Acquired coagulation factor deficiency; Z51.5 Encounter for palliative care; K72.90 Hepatic failure, unspecified without coma; C50.919 Malignant neoplasm of unspecified site of unspecified female breast; Z66 Do not resuscitate; D50.0 Iron deficiency anemia secondary to blood loss (chronic); R14.0 Abdominal distension (gaseous); E87.5 Hyperkalemia; M19.90 Unspecified osteoarthritis, unspecified site
CPT/HCPCS: 31500; 36415; 36600; 71045; 74018; 80048; 80053; 80307; 81003; 82140; 82248; 82550; 82803; 83605; 83690; 83880; 84484; 85007; 85025; 85610; 85730; 86850; 86900; 86901; 86920; 87040; 87081; 87086; 87181; 93005; 94002; 94003; 94664; 94760; 96361; 96365; 96367; 96368; 99285; J2310